=== PATIENT | male | born 2000 | race Caucasian/White ===

== ENCOUNTER 2022-06-16 22:11 | Emergency (ER) | payer OTHER ==
[2022-06-16 22:50] VITALS: BP 147/81; PULSE 58; RESP 20; TEMP 97.7
[2022-06-16] MEDS ORDERED: ACETAMINOPHEN TAB 500 MG TAB PO STA (23:08)
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
[2022-06-17 00:25] LABS: Basophils # (A) 0.1 k/uL (0-0.2); Basophils % (A) 1 %; Eosinophils # (A) 0.3 k/uL (0-0.7); Eosinophils % (A) 2 %; HCT 44.8 % (39.0-53.0); HGB 15.8 gm/dL (13.0-17.5); Lymphocytes # (A) 3.9 k/uL (1.0-4.8); Lymphocytes % (A) 33 %; MCHC 35.2 g/dL (31.0-37.0); MCV 90.9 fL (80.0-100.0); Mean Platelet Volume 8.1; Monocytes # (A) 0.4 k/uL (0-1.0); Monocytes % (A) 3 %; Neutrophils # (A) 6.8 k/uL (1.3-7.7); Neutrophils % (A) 59 %; Platelet Count 218 k/uL (150-450); RBC 4.93 m/uL (4.30-5.90); RDW 12.4 % (11.5-15.5); WBC 11.6 k/uL (3.8-10.6)
[2022-06-17 00:39] LABS: African American GFR (CKD) >90 (>60 ml/min/1.73 sqM); Alcohol <10 mg/dL; Anion Gap 9 mmol/L; Blood Urea Nitrogen 12 mg/dL (9-20); Calcium 9.5 mg/dL (8.4-10.2); Carbon Dioxide 26 mmol/L (22-30); Chloride 104 mmol/L (98-107); Glucose 92 mg/dL (74-99); Non-African American GFR(CKD) >90 (>60 ml/min/1.73 sqM); Potassium 4.1 mmol/L (3.5-5.1); Sodium 139 mmol/L (137-145)
== END 2022-06-17 05:01 | disposition home or self-care (01) ==
LOC: EC 22:11
DX: Z71.1 Person with feared health complaint in whom no diagnosis is made (principal); F41.9 Anxiety disorder, unspecified; F17.210 Nicotine dependence, cigarettes, uncomplicated
CPT/HCPCS: 80048; 80320; 85025; 99285

== ENCOUNTER 2022-08-24 13:06 | Emergency (ER) | payer OTHER ==
[2022-08-24 13:17] VITALS: BP 148/83; PULSE 77; RESP 20; TEMP 98.2
--- NOTE | 2022-08-24 13:38 | ED ---
General Adult HPI - General Source: patient, police, RN notes reviewed, old records reviewed Mode of arrival: ambulatory Limitations: physical limitation (Patient refuses to be compliant with history and physical.) <Gustavo Hernandez - Last Filed: 08/24/22 13:34> <Avery Celaya - Last Filed: 08/24/22 18:03> - General Chief complaint: Psychiatric Symptoms Stated complaint: mental health Time Seen by Provider: 08/24/22 13:20 - History of Present Illness Initial comments: 21-year-old male presenting for mental health evaluation. Patient has been petitioned by the group social worker or nurse at the local correction. Patient not compliant with history but the petitioned does indicate that he's been delusional, hypersexual, and has had increasing agitation with suicidal thoughts. (Gustavo Hernandez) - Related Data Home Medications Medication Instructions Recorded Confirmed No Known Home Medications 06/24/22 08/24/22 Allergies Allergy/AdvReac Type Severity Reaction Status Date / Time No Known Allergies Allergy Verified 08/24/22 15:51 Review of Systems ROS Other: All systems not noted in ROS Statement are negative. <Gustavo Hernandez - Last Filed: 08/24/22 13:34> ROS Other: All systems not noted in ROS Statement are negative. <Avery Celaya - Last Filed: 08/24/22 18:03> ROS Statement: Those systems with pertinent positive or pertinent negative responses have been documented in the HPI. Past Medical History Past Medical History: No Reported History Past Surgical History: No Surgical Hx Reported Past Psychological History: Bipolar Smoking Status: Heavy tobacco smoker Past Alcohol Use History: Occasional Past Drug Use History: None Reported <Gustavo Hernandez - Last Filed: 08/24/22 13:34> General Exam General appearance: alert Head exam: Present: atraumatic, normocephalic Eye exam: Present: normal appearance, PERRL ENT exam: Present: mucous membranes moist Neck exam: Present: normal inspection Respiratory exam: Absent: respiratory distress Cardiovascular Exam: Present: regular rate GI/Abdominal exam: Absent: distended Extremities exam: Present: normal inspection Neurological exam: Present: alert Psychiatric exam: Present: agitated, flat affect Skin exam: Present: normal color <Gustavo Hernandez - Last Filed: 08/24/22 13:34> Course <Gustavo Hernandez - Last Filed: 08/24/22 13:34> Vital Signs 08/24/22 13:09 Temperature 98.2 F Pulse Rate 77 Respiratory 20 Rate Blood Pressure 148/83 O2 Sat by Pulse 97 Oximetry - Reevaluation(s) Reevaluation #1: 08/24/22 13:35 Patient cleared for EPS (Gustavo Hernandez) Medical Decision Making <Avery Celaya - Last Filed: 08/24/22 18:03> - Medical Decision Making Patient is signed out to me pending EPS evaluation. Was petitioned by correction for psychiatric evaluation. Patient was evaluated by EPS. Does not meet inpatient criteria. Is cleared from EPS standpoint for discharge back to correction. I was in agreement with this plan. Patient was discharged back to correction in good condition. (Avery Celaya) - Lab Data Lab Results 08/24/22 08/24/22 Range/Units 13:57 16:14 Serum Alcohol <10 mg/dL Coronavirus (PCR) Not Detected (Not Detectd) Disposition <Gustavo Hernandez - Last Filed: 08/24/22 13:34> Is patient prescribed a controlled substance at d/c from ED?: No Time of Disposition: 17:45 - Out of Hospital Transfer - Req. Specs Out of Hospital Transfer - Requested Specifics: Other Non-Acute (Transfer back to correction. Patient is a prisoner.) <Avery Celaya - Last Filed: 08/24/22 18:03> Clinical Impression: Encounter for psychiatric assessment Disposition: OTHER INSTITUTION NOT DEFINED Condition: Good Additional Instructions: see packet from eps for further information. Referrals: None,Stated [Primary Care Provider] - 1-2 days
[2022-08-24] MEDS ORDERED: LORazepam 2 MG/ML INJ IM STA (15:24)
== END 2022-08-24 18:02 | disposition other institution (70) ==
LOC: EC 13:06
DX: Z00.8 Encounter for other general examination (principal); F31.9 Bipolar disorder, unspecified; F17.210 Nicotine dependence, cigarettes, uncomplicated; Z20.822 Contact with and (suspected) exposure to COVID-19
CPT/HCPCS: 36415; 87635; 99285; 96372; G0480; J2060; 80320

== ENCOUNTER 2022-08-25 12:28 | Inpatient (IN) | payer MEDICAID, OTHER ==
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
[2022-08-25] MEDS ORDERED: chlorproMAZINE 25 MG TAB PO PRN (15:04)
[2022-08-25] MEDS ORDERED: ACETAMINOPHEN TAB 325 MG TAB PO PRN (15:04)
[2022-08-25] MEDS ORDERED: MAGNESIUM HYDROXIDE 2,400 MG/10 ML CUP PO PRN (15:04)
[2022-08-25] MEDS ORDERED: MAG HYDROX/AL HYDROX/SIMETH 30 ML CUP PO PRN (15:04)
[2022-08-25] MEDS ORDERED: diphenhydrAMINE 50 MG/ML 1 ML VIAL IM PRN (15:04)
[2022-08-25] MEDS ORDERED: chlorproMAZINE 25 MG/ML 1 ML AMP IM PRN ×2 (15:04→18:38)
[2022-08-25] MEDS: NICOTINE 14MG/24HR PATCH TRANSDERM SCH (16:13)
[2022-08-25] MEDS ORDERED: chlorproMAZINE 25 MG/ML 2 ML AMP IM PRN (18:19)
[2022-08-25] MEDS: LORazepam 1 MG/0.5 ML VIAL IM PRN (18:31)
--- NOTE | 2022-08-26 04:09 | P.PN ---
Progress Note - Text Progress Note Date: 08/26/22 Attempted to see the patient at 2200 on 08/25. The patient was actively psychotic and inappropriate for evaluation as per the mental health unit RN.
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
[2022-08-26] MEDS: NICOTINE 14MG/24HR PATCH TRANSDERM SCH (11:36)
--- NOTE | 2022-08-26 21:09 | P.PN ---
Progress Note - Text Progress Note Date: 08/26/22 Attempted to see the patient at 1999 on 08/26. The patient refused to be seen or be evaluated.
[2022-08-27] MEDS ORDERED: ACETAMINOPHEN TAB 325 MG TAB ONE (00:20)
[2022-08-27] MEDS ORDERED: chlorproMAZINE 25 MG/ML 1 ML AMP ONE (00:20)
[2022-08-27] MEDS ORDERED: LORazepam 1 MG/0.5 ML VIAL ONE (00:20)
[2022-08-27] MEDS ORDERED: diphenhydrAMINE 50 MG/ML 1 ML VIAL ONE (00:20)
[2022-08-27] MEDS ORDERED: HALOPERIDOL LACTATE 5 MG/ML 1 ML VIAL IM STA (10:17)
[2022-08-27] MEDS: NICOTINE 14MG/24HR PATCH TRANSDERM SCH (10:18)
[2022-08-27] MEDS: LORazepam 1 MG/0.5 ML VIAL IM PRN (10:25)
[2022-08-27] MEDS: LORazepam 1 MG TAB PO PRN (21:06)
[2022-08-27] MEDS: chlorproMAZINE 100 MG TAB PO PRN (21:06)
[2022-08-28] MEDS: NICOTINE 14MG/24HR PATCH TRANSDERM SCH (08:53)
[2022-08-28] MEDS: chlorproMAZINE 100 MG TAB PO PRN ×2 (09:00→20:54)
--- NOTE | 2022-08-28 09:47 | PN ---
DATE OF SERVICE: 08/27/2022 PROGRESS NOTE CHIEF COMPLAINT: The patient presented from [facility] as acutely psychotic with nonsensical speech. INTERVAL HISTORY: The patient has been in a very acute level of dysfunction. He had difficulties yesterday. He did require restraints coming to the unit. He made efforts to elope from the unit. He had periods of agitation, where he would become quite restless, he was yelling. He required one-on-one. He did receive p.r.n. Staff documented that he slept 4 hours last night and today, he has been up. Mostly, he has been in his room. He does come out from [id number] and wanders in the unit. It is not clear that he interacts at all with others. When I attempted to talk to him, he did not give any eye contact or make any direct comments to me. He did say 1 or 2 things, all was hard to understand what he was trying to say. He did indicate that he did not need to talk to me at the time that I saw him, though it is noted that just before that he walked into the office, where I was at and stood for a brief time and then walked out again. MENTAL STATUS EXAMINATION: The patient gave no eye contact. Psychomotor activity was slowed. He only said a few things in very soft words. His affect was flat. It is difficult to assess for his mood or level of distress. He presents with psychotic symptoms. It is difficult to assess for thoughts of harm. It is difficult to assess for orientation. ASSESSMENT: I will continue the current diagnosis and treatment plan. The patient has declined taking oral medications that have been prescribed given the high risk that the patient presents relating to his serious behavior difficulties and inability to communicate. I will give him a one-time dose of Haldol 10 mg and Ativan 2 mg IM. The aim is to help reduce physiologic stress response and to address his psychotic presentation. He will continue on one-to-one. We will focus on stabilization and discharge planning. CRIS / JAIMIE: [id number] / [id number]
--- NOTE | 2022-08-28 13:02 | P.PN ---
Progress Note - Text Progress Note Date: 08/28/22 Interval history: Patient was seen bedside with sitter present and was directable and agreeable to speak with pattern chart writer. Agent is disorganized in his speech. He sexually preoccupied and requests this pattern chart writer to sit with him on the bed. He states that it would help him sleep better. He reports eating well. He denies concerns with medications and has been more compliant with them. He was encouraged to discuss concerns rather than attempt to elope. At this time patient denies any suicidal or homicidal ideations intent or plan. Denies any Auditory or visual hallucinations. Mental status exam: General Appearance: Poor hygiene disheveled. Behavior: Agitated today that is somewhat hyperactive Speech: Patient's speech is fluent and nonpressured. Mood/Affect: "Okay "but appears somnolent Suicidality/Homicidality: Patient denies having any suicidal or homicidal idea tion intent or plan. Perceptions: Patient denies any auditory or visual hallucinations. Though content/process: disorganized Memory and concentration: AOX3 Judgment and insight: poor Assessment/Plan: Continue with current diagnosis. Patient continues to meet criteria for inpatient psychiatric admission for symptom stabilization and safety.Patient will be maintained on current psychotropic medication regimen - Prolixin 5 mg BID with Ativan/Thorazine for aggression/agitation). Monitor for medication compliance and for any psychotropic medication side effects. Will continue to monitor ongoing response to treatment. Encouraged participation in milieu.
[2022-08-29 07:13] VITALS: BP 145/77; PULSE 122; RESP 16; TEMP 97.4
[2022-08-29] MEDS: NICOTINE 14MG/24HR PATCH TRANSDERM SCH (09:04)
[2022-08-29] MEDS: LORazepam 1 MG TAB PO PRN ×2 (09:41→19:40)
[2022-08-29] MEDS: diphenhydrAMINE 50 MG CAP PO PRN (09:41)
[2022-08-29] MEDS: chlorproMAZINE 100 MG TAB PO PRN (09:41)
--- NOTE | 2022-08-29 17:22 | P.PN ---
Progress Note - Text Progress Note Date: 08/29/22 Interval history: Patient was seen bedside with sitter present and was sedated. He was noted to be more disorganized this morning. As patient was getting agitated, he accepted Thorazine PO and Benadryl earlier today. He also received Ativan PO 2 mg this morning. He continues to be sexually preoccupied and repeatedly sought out this provider. He is noted to be eating well. He has been compliant with medications. No suicidal or homicidal ideations intent or plan. Denies any Auditory or visual hallucinations. Mental status exam: General Appearance: Poor hygiene disheveled. Behavior: Agitated today that is somewhat hyperactive Speech: Patient's speech is fluent and nonpressured. Mood/Affect: somnolent Suicidality/Homicidality: Patient denies having any suicidal or homicidal ideation intent or plan. Perceptions: Patient denies any auditory or visual hallucinations. Though content/process: disorganized Memory and concentration: AOX3 Judgment and insight: poor Assessment/Plan: Continue with current diagnosis. Patient continues to meet criteria for inpatient psychiatric admission for symptom stabilization and safety.Patient will be maintained on current psychotropic medication regimen - Prolixin 5 mg BID with Ativan/Thorazine for aggression/agitation). Monitor for medication compliance and for any psychotropic medication side effects. Will continue to monitor ongoing response to treatment. Encouraged participation in milieu.
[2022-08-30] MEDS: chlorproMAZINE 100 MG TAB PO PRN ×2 (00:04→08:02)
[2022-08-30] MEDS: diphenhydrAMINE 50 MG CAP PO PRN ×2 (00:05→10:31)
[2022-08-30] MEDS: LORazepam 1 MG TAB PO PRN (08:02)
[2022-08-30] MEDS: NICOTINE 14MG/24HR PATCH TRANSDERM SCH (08:02)
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
== END 2022-08-30 15:00 | DRG 885 ==
LOC: EC 12:28 → 3MHU 14:59
PROVIDERS: ADMIT Psychiatry & Neurology Psychiatry; ATTEND Psychiatry & Neurology Psychiatry
DX: F23 Brief psychotic disorder (principal); F17.200 Nicotine dependence, unspecified, uncomplicated; Z59.00 Homelessness unspecified; Z20.822 Contact with and (suspected) exposure to COVID-19
CPT/HCPCS: 82075; 87635; 99285

== ENCOUNTER 2022-08-26 13:26 | Emergency (ER) | payer OTHER ==
[2022-08-26 13:33] VITALS: TEMP 97.6
[2022-08-26] MEDS ORDERED: ZIPRASIDONE 20 MG VIAL IM STA (13:40)
[2022-08-26] MEDS ORDERED: LORazepam 2 MG/ML INJ IM STA (13:40)
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
[2022-08-26] MEDS ORDERED: diphenhydrAMINE 50 MG/ML 1 ML VIAL IM STA (14:17)
[2022-08-26 17:34] VITALS: BP 116/81; PULSE 84; RESP 18
== END 2022-08-26 16:55 ==
LOC: EC 13:26
DX: F23 Brief psychotic disorder (principal); F17.200 Nicotine dependence, unspecified, uncomplicated
CPT/HCPCS: 99285; 96372; J2060; J1200; J3486

== ENCOUNTER 2022-10-04 09:24 | Emergency (ER) | payer OTHER ==
[2022-10-04 09:43] VITALS: TEMP 97.6
--- NOTE | 2022-10-04 10:40 | ED ---
Psych HPI - General Chief Complaint: Psychiatric Symptoms Stated Complaint: suicidal Time Seen by Provider: 10/04/22 09:40 Source: patient, RN notes reviewed Mode of arrival: ambulatory Limitations: no limitations - History of Present Illness Initial Comments: 21-year-old male presents emergency from chief complaint needs psychiatric evaluation. Patient not providing much information does admit to alcohol or drugs otherwise not participating in questions. Patient does have history of psychosis, recent site admission. - Related Data Previous Rx's Medication Instructions Recorded Nicotine 14Mg/24Hr Patch [Habitrol] 1 patch TRANSDERM DAILY 30 Days 08/30/22 patch fluPHENAZine [Prolixin] 5 mg PO BID 30 Days tab 08/30/22 Allergies Allergy/AdvReac Type Severity Reaction Status Date / Time No Known Allergies Allergy Verified 10/04/22 12:53 Review of Systems ROS Statement: Those systems with pertinent positive or pertinent negative responses have been documented in the HPI. ROS Other: All systems not noted in ROS Statement are negative. Past Medical History Past Medical History: No Reported History History of Any Multi-Drug Resistant Organisms: None Reported Past Surgical History: No Surgical Hx Reported Past Psychological History: Bipolar Smoking Status: Heavy tobacco smoker Past Alcohol Use History: Occasional Past Drug Use History: None Reported General Exam Limitations: no limitations General appearance: alert, in no apparent distress Head exam: Present: atraumatic, normocephalic, normal inspection Eye exam: Present: normal appearance, PERRL, EOMI. Absent: scleral icterus, conjunctival injection, periorbital swelling ENT exam: Present: normal exam, normal oropharynx, mucous membranes moist Neck exam: Present: normal inspection, full ROM. Absent: tenderness, meningismus, lymphadenopathy Respiratory exam: Present: normal lung sounds bilaterally. Absent: respiratory distress, wheezes, rales, rhonchi, stridor Cardiovascular Exam: Present: regular rate, normal rhythm, normal heart sounds. Absent: systolic murmur, diastolic murmur, rubs, gallop, clicks Neurological exam: Present: alert Skin exam: Present: warm, dry, intact, normal color. Absent: rash Course Vital Signs 10/04/22 10/05/22 09:40 02:57 Temperature 97.6 F Pulse Rate 75 78 Respiratory 20 18 Rate Blood Pressure 148/95 146/98 O2 Sat by Pulse 100 98 Oximetry Medical Decision Making - Medical Decision Making 12-year-old presented for psychiatric evaluation patient evaluate by EPS case discussed with psychiatrist recommends patient be transferred to psychiatric facility. Patient was evaluated by Dr. Rodriguez and clinical CERT patient was filled out. Patient was a evaluated by psychiatrist and patient was negatively cert by psychiatry and recommended the patient to be discharged on the recommendation. - Lab Data Result diagrams: 10/05/22 04:53 10/05/22 04:53 Lab Results 10/04/22 10/04/22 10/05/22 Range/Units 12:53 13:38 04:53 WBC (3.8-10.6) k/uL RBC (4.30-5.90) m/uL Hgb (13.0-17.5) gm/dL Hct (39.0-53.0) % MCV (80.0-100.0) fL MCH (25.0-35.0) pg MCHC (31.0-37.0) g/dL RDW (11.5-15.5) % Plt Count (150-450) k/uL MPV Neutrophils % % Lymphocytes % % Monocytes % % Eosinophils % % Basophils % % Neutrophils # (1.3-7.7) k/uL Lymphocytes # (1.0-4.8) k/uL Monocytes # (0-1.0) k/uL Eosinophils # (0-0.7) k/uL Basophils # (0-0.2) k/uL Sodium 142 (137-145) mmol/L Potassium 4.0 (3.5-5.1) mmol/L Chloride 111 H (98-107) mmol/L Carbon Dioxide 26 (22-30) mmol/L Anion Gap 5 mmol/L BUN 16 (9-20) mg/dL Creatinine 0.78 (0.66-1.25) mg/dL Est GFR (CKD-EPI)AfAm >90 (>60 ml/min/1.73 sqM) Est GFR (CKD-EPI)NonAf >90 (>60 ml/min/1.73 sqM) Glucose 113 H (74-99) mg/dL Calcium 8.6 (8.4-10.2) mg/dL Total Bilirubin 0.9 (0.2-1.3) mg/dL AST 28 (17-59) U/L ALT 28 (4-49) U/L Alkaline Phosphatase 62 (38-126) U/L Total Protein 6.1 L (6.3-8.2) g/dL Albumin 3.9 (3.5-5.0) g/dL Urine Color Yellow Urine Appearance Clear (Clear) Urine pH 7.0 (5.0-8.0) Ur Specific [place] 1.030 (1.001-1.035) Urine Protein Trace H (Negative) Urine Glucose (UA) Negative (Negative) Urine Ketones Negative (Negative) Urine Blood Negative (Negative) Urine Nitrite Negative (Negative) Urine Bilirubin Negative (Negative) Urine Urobilinogen 2.0 (<2.0) mg/dL Ur Leukocyte Esterase Negative (Negative) Urine Opiates Screen Not Detected (NotDetected) Ur Oxycodone Screen Not Detected (NotDetected) Urine Methadone Screen Not Detected (NotDetected) Ur Propoxyphene Screen Not Detected (NotDetected) Ur Barbiturates Screen Not Detected (NotDetected) U Tricyclic Antidepress Not Detected (NotDetected) Ur Phencyclidine Scrn Not Detected (NotDetected) Ur Amphetamines Screen Not Detected (NotDetected) U Methamphetamines Scrn Not Detected (NotDetected) U Benzodiazepines Scrn Not Detected (NotDetected) Urine Cocaine Screen Not Detected (NotDetected) U Marijuana (THC) Screen Detected H (NotDetected) Coronavirus (PCR) (Not Detectd) 10/05/22 10/05/22 Range/Units 04:53 04:53 WBC 10.0 (3.8-10.6) k/uL RBC 4.66 (4.30-5.90) m/uL Hgb 14.3 (13.0-17.5) gm/dL Hct 40.4 (39.0-53.0) % MCV 86.7 (80.0-100.0) fL MCH 30.7 (25.0-35.0) pg MCHC 35.4 (31.0-37.0) g/dL RDW 11.8 (11.5-15.5) % Plt Count 157 (150-450) k/uL MPV 7.9 Neutrophils % 75 % Lymphocytes % 18 % Monocytes % 3 % Eosinophils % 2 % Basophils % 0 % Neutrophils # 7.5 (1.3-7.7) k/uL Lymphocytes # 1.8 (1.0-4.8) k/uL Monocytes # 0.3 (0-1.0) k/uL Eosinophils # 0.2 (0-0.7) k/uL Basophils # 0.0 (0-0.2) k/uL Sodium (137-145) mmol/L Potassium (3.5-5.1) mmol/L Chloride (98-107) mmol/L Carbon Dioxide (22-30) mmol/L Anion Gap mmol/L BUN (9-20) mg/dL Creatinine (0.66-1.25) mg/dL Est GFR (CKD-EPI)AfAm (>60 ml/min/1.73 sqM) Est GFR (CKD-EPI)NonAf (>60 ml/min/1.73 sqM) Glucose (74-99) mg/dL Calcium (8.4-10.2) mg/dL Total Bilirubin (0.2-1.3) mg/dL AST (17-59) U/L ALT (4-49) U/L Alkaline Phosphatase (38-126) U/L Total Protein (6.3-8.2) g/dL Albumin (3.5-5.0) g/dL Urine Color Urine Appearance (Clear) Urine pH (5.0-8.0) Ur Specific [place] (1.001-1.035) Urine Protein (Negative) Urine Glucose (UA) (Negative) Urine Ketones (Negative) Urine Blood (Negative) Urine Nitrite (Negative) Urine Bilirubin (Negative) Urine Urobilinogen (<2.0) mg/dL Ur Leukocyte Esterase (Negative) Urine Opiates Screen (NotDetected) Ur Oxycodone Screen (NotDetected) Urine Methadone Screen (NotDetected) Ur Propoxyphene Screen (NotDetected) Ur Barbiturates Screen (NotDetected) U Tricyclic Antidepress (NotDetected) Ur Phencyclidine Scrn (NotDetected) Ur Amphetamines Screen (NotDetected) U Methamphetamines Scrn (NotDetected) U Benzodiazepines Scrn (NotDetected) Urine Cocaine Screen (NotDetected) U Marijuana (THC) Screen (NotDetected) Coronavirus (PCR) Not Detected (Not Detectd) Disposition Clinical Impression: Psychosis Disposition: HOME SELF-CARE Condition: Stable Additional Instructions: Please return to the Emergency Department if symptoms worsen or any other concerns. Is patient prescribed a controlled substance at d/c from ED?: No Referrals: None,Stated [Primary Care Provider] - 1-2 days Time of Disposition: 13:01
[2022-10-04] MEDS ORDERED: ZIPRASIDONE 20 MG VIAL IM STA (12:54)
[2022-10-04] MEDS ORDERED: LORazepam 2 MG/ML INJ IM STA (12:54)
[2022-10-04 13:29] LABS: Appearance,Urine Clear (Clear); Bilirubin,Urine Negative (Negative); Blood,Urine Negative (Negative); Color,Urine Yellow; Glucose,Urine (UA) Negative (Negative); Ketones,Urine Negative (Negative); Leukocyte Esterase,Urine Negative (Negative); Nitrite,Urine Negative (Negative); Protein,Urine Trace (Negative)
[2022-10-04 13:40] LABS: Amphetamine Screen,Urine Not Detected (NotDetected); Barbiturate Screen,Urine Not Detected (NotDetected); Benzodiazepines Screen,Urine Not Detected (NotDetected); Cocaine Screen,Urine Not Detected (NotDetected); Methadone Screen, Urine Not Detected (NotDetected); Opiate Screen,Urine Not Detected (NotDetected); Oxycodone Screen, Urine Not Detected (NotDetected); Phencyclidine Screen,Urine Not Detected (NotDetected); Tricyclic Antidepressant,Urine Not Detected (NotDetected); Urn Cannabinoid Scrn Detected (NotDetected)
[2022-10-05] MEDS ORDERED: ZIPRASIDONE 20 MG VIAL IM STA (02:42)
[2022-10-05] MEDS ORDERED: LORazepam 2 MG/ML INJ IM STA (02:42)
[2022-10-05 02:58] VITALS: BP 146/98; PULSE 78; RESP 18
[2022-10-05 05:04] LABS: Basophils % (A) 0 %; Eosinophils # (A) 0.2 k/uL (0-0.7); Eosinophils % (A) 2 %; HCT 40.4 % (39.0-53.0); HGB 14.3 gm/dL (13.0-17.5); Lymphocytes # (A) 1.8 k/uL (1.0-4.8); Lymphocytes % (A) 18 %; MCH 30.7 pg (25.0-35.0); MCHC 35.4 g/dL (31.0-37.0); MCV 86.7 fL (80.0-100.0); Mean Platelet Volume 7.9; Monocytes # (A) 0.3 k/uL (0-1.0); Monocytes % (A) 3 %; Neutrophils # (A) 7.5 k/uL (1.3-7.7); Neutrophils % (A) 75 %; Platelet Count 157 k/uL (150-450); RBC 4.66 m/uL (4.30-5.90); RDW 11.8 % (11.5-15.5)
[2022-10-05 05:18] LABS: ALT 28 U/L (4-49); AST 28 U/L (17-59); African American GFR (CKD) >90 (>60 ml/min/1.73 sqM); Albumin 3.9 g/dL (3.5-5.0); Alkaline Phosphatase 62 U/L (38-126); Anion Gap 5 mmol/L; Blood Urea Nitrogen 16 mg/dL (9-20); Calcium 8.6 mg/dL (8.4-10.2); Carbon Dioxide 26 mmol/L (22-30); Chloride 111 mmol/L (98-107); Glucose 113 mg/dL (74-99); Non-African American GFR(CKD) >90 (>60 ml/min/1.73 sqM); Sodium 142 mmol/L (137-145); Total Bilirubin 0.9 mg/dL (0.2-1.3); Total Protein 6.1 g/dL (6.3-8.2)
--- NOTE | 2022-10-05 11:30 | P.CN ---
Psychiatric Consult - . Consult date: 10/05/22 Consult:: IDENTIFYING DATA: This patient is a 21-year-old male with a significant history of psychosis who presented to the emergency department for psychiatric evaluation. HISTORY OF PRESENT ILLNESS: The patient presented to the hospital on 10/04/2022, brought into the emergency department on his own volition requesting a psychiatric evaluation. As per emergency department note review, the patient did admit to alcohol and drug use however refused to answer any questions. The patient has been noted by staff to be intermittently bizarre. At times, he'll be nonsensical when directly observed however when observed without the patient's knowledge, the patient was calm, linear, and logical. When assessed by this provider, the patient reports that he is uncertain as to how he arrived to the hospital. . He is currently denying any suicidal or homicidal ideation, intention, and/or plan. The only homicidal ideation he endorses is towards Stateless soldiers as he wishes to fight for [place]. He is not reporting any aud itory or visual hallucinations. The patient is not endorsing any bizarre paranoid delusions. He is linear and logical and future/school oriented and is requesting controlled medications such as Percocet and Adderall. The patient does acknowledge that he has been staying at the [facility]. He does report that he is unhappy being there but understands that he has no other alternatives as he would be homeless otherwise. PAST PSYCHIATRIC HISTORY: Patient has a history of psychosis. The patient is on a regimen of Prolixin 5 mg by mouth twice a day. His last hospitalized on our psychiatric unit in August 2022. Currently open with [facility]. Patient denies any history of suicide attempts in the past. PAST MEDICAL HISTORY: Past Medical History: No Reported History History of Any Multi-Drug Resistant Organisms: None Reported Past Surgical History: No Surgical Hx Reported Past Psychological History: Bipolar Smoking Status: Heavy tobacco smoker Past Alcohol Use History: Occasional Past Drug Use History: None Reported ALLERGIES: NO KNOWN DRUG ALLERGIES CHEMICAL DEPENDENCY HISTORY: The patient does report alcohol use. He also admits to marijuana use. He reports a history of other polysubstance abuse. FAMILY PSYCHIATRIC/SUBSTANCE USE HISTORY: Unable to determine. SOCIAL HISTORY: Patient currently resides at the [facility]. MENTAL STATUS EXAM: General Appearance: Patient appears to be stated age is alert, pleasant, and cooperative. Patient appears to have fair hygiene and grooming wearing hospital gown with fair eye contact. Behavior: Patient is standing upright in his room without any agitated behavior. Speech: Patient's speech is fluent and nonpressured. Mood/Affect: Patient reports their mood is "doing fine", affect is congruent and euthymic Suicidality/Homicidality: Patient denies having any suicidal or homicidal ideation intent or plan. Perceptions: Patient denies any visual hallucinations and denies any auditory hallucinations Though content/process: There is no evidence of any delusional thought content and thought process is linear and goal-directed. Memory and concentration: AOX3, grossly intact for the purposes of this session. Can spell "WORLD" backwards Judgment and insight: Poor IMPRESSIONS: Acute psychosis, appears resolved Rule out malingering - patient likely looking for secondary gain in terms of finding different housing or avoiding his wildlife officer. PLAN: -At this time patient DOES NOT meet criteria for inpatient psychiatric admission. -Would recommend the following medication changes/additions: Continue Prolixin 5 mg by mouth twice a day for psychosis -Patient is cleared psychiatrically for discharge back to the [facility]. He is to continue outpatient treatment through [facility]. -Psychiatry will sign off at this point, please contact with any questions. 10/05/22 11:30 10/05/22 11:30
== END 2022-10-05 11:24 | disposition home or self-care (01) ==
LOC: EC 09:24
DX: F29 Unspecified psychosis not due to a substance or known physiological condition (principal); F17.200 Nicotine dependence, unspecified, uncomplicated; Z20.822 Contact with and (suspected) exposure to COVID-19
CPT/HCPCS: 96372 ×4; 82075; 99284; 36415; 80053; 85025; 81003; 80306; 87635; 99285; J2060 ×2; J3486 ×2

== ENCOUNTER 2022-10-05 15:06 | Emergency (ER) | payer OTHER ==
[2022-10-05 15:33] VITALS: BP 125/83; PULSE 103; RESP 22; TEMP 97.8
--- NOTE | 2022-10-05 15:59 | ED ---
General Adult HPI - General Chief complaint: Psychiatric Symptoms Stated complaint: Petition Time Seen by Provider: 10/05/22 15:36 Source: patient, police Mode of arrival: ambulatory Limitations: altered mental status - History of Present Illness Initial comments: This patient is 21-year-old man brought by law enforcement to have medical clearance to go to the assisted. When I interview the patient, he states his complaint is "I need a microwave because these application developer confiscated maribel. I also need an outlet." Patient denies suicidal and homicidal ideation. When asked if there was anything else the patient needed he stated he also needed part of $1 million. -: hour(s) Severity scale (1-10): 0 Improves with: none Worsens with: none Associated Symptoms: denies other symptoms Treatments Prior to Arrival: none - Related Data Previous Rx's Medication Instructions Recorded Nicotine 14Mg/24Hr Patch [Habitrol] 1 patch TRANSDERM DAILY 30 Days 08/30/22 patch fluPHENAZine [Prolixin] 5 mg PO BID 30 Days tab 08/30/22 Allergies Allergy/AdvReac Type Severity Reaction Status Date / Time No Known Allergies Allergy Verified 10/05/22 15:33 Review of Systems ROS Statement: Those systems with pertinent positive or pertinent negative responses have been documented in the HPI. ROS Other: All systems not noted in ROS Statement are negative. Constitutional: Denies: fever Respiratory: Denies: cough, dyspnea Cardiovascular: Denies: chest pain, syncope Gastrointestinal: Denies: abdominal pain, vomiting Musculoskeletal: Denies: back pain Neurological: Denies: headache Psychiatric: Denies: homicidal thoughts, suicidal thoughts Past Medical History Past Medical History: No Reported History History of Any Multi-Drug Resistant Organisms: None Reported Past Surgical History: No Surgical Hx Reported Past Psychological History: Bipolar Smoking Status: Heavy tobacco smoker Past Alcohol Use History: Occasional Past Drug Use History: None Reported General Exam Limitations: altered mental status General appearance: alert, in no apparent distress Head exam: Present: atraumatic, normocephalic Eye exam: Present: normal appearance Neck exam: Present: normal inspection, full ROM Respiratory exam: Present: normal lung sounds bilaterally. Absent: respiratory distress, wheezes, rales, rhonchi, stridor Cardiovascular Exam: Present: regular rate, normal rhythm, normal heart sounds. Absent: systolic murmur, diastolic murmur, rubs, gallop GI/Abdominal exam: Present: soft. Absent: distended, tenderness, guarding, rebound, rigid, mass Extremities exam: Present: normal inspection, normal capillary refill Back exam: Present: normal inspection Neurological exam: Present: alert, normal gait. Absent: motor sensory deficit Psychiatric exam: Present: normal affect. Absent: agitated, anxious, flat affect, homicidal ideation, suicidal ideation Skin exam: Present: warm, dry, intact, normal color. Absent: rash Course Vital Signs 10/05/22 15:24 Temperature 97.8 F Pulse Rate 103 H Respiratory 22 Rate Blood Pressure 125/83 O2 Sat by Pulse 98 Oximetry Medical Decision Making - Medical Decision Making This patient is brought here by law enforcement prior to going to the assisted. General requested that the patient have medical clearance and psychiatric evaluation. Review of records shows that the patient was seen by the psychiatrist this morning and cleared. Disposition Clinical Impression: Medical clearance for incarceration Disposition: OTHER INSTITUTION NOT DEFINED Condition: Good Is patient prescribed a controlled substance at d/c from ED?: No Referrals: None,Stated [Primary Care Provider] - 1-2 days - Out of Hospital Transfer - Req. Specs Out of Hospital Transfer - Requested Specifics: Other Non-Acute
== END 2022-10-05 16:15 | disposition other institution (70) ==
LOC: EC 15:06
DX: R41.82 Altered mental status, unspecified; F17.200 Nicotine dependence, unspecified, uncomplicated; F31.9 Bipolar disorder, unspecified; Z02.89 Encounter for other administrative examinations
CPT/HCPCS: 99285

== ENCOUNTER 2022-10-06 10:31 | Inpatient (IN) | payer MEDICAID, OTHER ==
--- NOTE | 2022-10-06 10:43 | ED ---
General Adult HPI - General Stated complaint: Psych Time Seen by Provider: 10/06/22 10:35 Source: patient, police, RN notes reviewed Mode of arrival: ambulatory Limitations: no limitations - History of Present Illness Initial comments: 21-year-old male presents emergency Department with police from [facility] for psychiatric evaluation. Patient's had multiple recent visits for similar complaints. Patient is brought here secondary to his behavior. Patient himself has no complaints she does not participate much in the evaluation. Patient does have a history of marijuana use, acute psychosis. Patient denies any physical complaints. - Related Data Home Medications Medication Instructions Recorded Confirmed ARIPiprazole [Abilify] 15 mg PO HS 10/06/22 10/06/22 Allergies Allergy/AdvReac Type Severity Reaction Status Date / Time No Known Allergies Allergy Verified 10/06/22 11:06 Review of Systems ROS Statement: Those systems with pertinent positive or pertinent negative responses have been documented in the HPI. ROS Other: All systems not noted in ROS Statement are negative. Past Medical History Past Medical History: No Reported History History of Any Multi-Drug Resistant Organisms: None Reported Past Surgical History: No Surgical Hx Reported Past Psychological History: Bipolar Smoking Status: Heavy tobacco smoker Past Alcohol Use History: Occasional Past Drug Use History: None Reported General Exam Limitations: no limitations General appearance: alert, in no apparent distress Head exam: Present: atraumatic, normocephalic, normal inspection Eye exam: Present: normal appearance, PERRL, EOMI. Absent: scleral icterus, conjunctival injection, periorbital swelling ENT exam: Present: normal exam, normal oropharynx, mucous membranes moist Neck exam: Present: normal inspection, full ROM. Absent: tenderness, meningismus, lymphadenopathy Respiratory exam: Present: normal lung sounds bilaterally. Absent: respiratory distress, wheezes, rales, rhonchi, stridor Cardiovascular Exam: Present: regular rate, normal rhythm, normal heart sounds. Absent: systolic murmur, diastolic murmur, rubs, gallop, clicks Neurological exam: Present: alert, oriented X3, CN II-XII intact Psychiatric exam: Present: anxious Skin exam: Present: warm, dry, intact, normal color. Absent: rash Course Vital Signs 10/06/22 10:32 Temperature 98.1 F Pulse Rate 104 H Respiratory 18 Rate Blood Pressure 137/87 O2 Sat by Pulse 96 Oximetry Medical Decision Making - Medical Decision Making patient was evaluated by EPS patient will be admitted for psychiatric treatment. - Lab Data Lab Results 10/06/22 Range/Units 11:23 Coronavirus (PCR) Not Detected (Not Detectd) Disposition Clinical Impression: Acute psychosis Disposition: TRANSFER TO PSYCH HOSP/UNIT Time of Disposition: 13:34
[2022-10-06] MEDS ORDERED: MAGNESIUM HYDROXIDE 2,400 MG/10 ML CUP PO PRN (13:09)
[2022-10-06] MEDS ORDERED: MAG HYDROX/AL HYDROX/SIMETH 355 ML BOTTLE PO PRN (13:09)
[2022-10-06] MEDS ORDERED: chlorproMAZINE 25 MG/ML 2 ML AMP IM PRN ×4 (13:10→14:55)
[2022-10-06] MEDS ORDERED: LORazepam 1 MG/0.5 ML VIAL IM PRN (13:10)
[2022-10-06] MEDS: diphenhydrAMINE 50 MG/ML 1 ML VIAL IM PRN (14:31)
[2022-10-06] MEDS ORDERED: LORazepam 2 MG/ML INJ IM PRN (18:03)
[2022-10-06] MEDS ORDERED: ARIPiprazole 15 MG TAB PO SCH (21:00)
[2022-10-07] MEDS: NICOTINE 14MG/24HR PATCH TRANSDERM SCH (09:02)
--- NOTE | 2022-10-07 10:22 | P.HP ---
Psychiatric H&P - . H&P Date: 10/07/22 History & Physical: Allergies Allergy/AdvReac Type Severity Reaction Status Date / Time No Known Allergies Allergy Verified 10/06/22 11:06 Vital Signs Temp 98.1 F 10/06/22 16:07 Pulse 68 10/06/22 16:07 Resp 16 10/06/22 16:07 BP 139/80 10/06/22 16:07 Pulse Ox 96 10/06/22 10:32 FiO2 Intake & Output 10/06/22 10/07/22 10/07/22 18:59 06:59 18:59 Weight 74.843 kg Laboratory Last Values Coronavirus (PCR) Not Detected (Not Detectd) 10/06/22 11:10/07/22 10:21 IDENTIFYING DATA: Patient is a 21-year-old, homeless, male, who pre sented from custodial for acute psychotic and bizarre behaviors. HPI: Patient presented to the hospital initially on 10/04/2022 presenting for psychiatric evaluation. Initially when assessed on 10/05/2022 by this provider, the patient was noted to be intermittently bizarre, in particular when he knew that he was being directly observed. However when he was not aware of being observed, the patient appeared to be calm, linear, and logical. Therefore negative clinical certificate was filled out by this provider and he was subsequently discharged. During the initial assessment, the patient remained fixated on being prescribed Bentyl medications such as Percocet and Adderall. Shortly after discharge, the patient was picked up by police for disorderly conduct. He was brought to the hospital again on 10/05/2022 for clearance for custodial. The patient was is calmly transferred back to the emergency Department from custodial under petition for bizarre and psychotic behavior. Reportedly, the patient has been yelling nonstop for 18 hours and has been defecating, masturbating, and exposing himself to the staff at the custodial. He was subsequently admitted onto our psychiatric unit. The patient presented similarly to our psychiatric unit in August 2022. During that admission, the patient was placed on a regimen of Prolixin for management of acute psychosis. During that admission, the patient did not display any of the bizarre behaviors I was exhibited in custodial. During this admission, the patient again eloped from the unit. He was subsequently found and readmitted back onto our psychiatric unit and is currently on a one-to-one security. Upon assessment this morning, the patient continues to state bizarre statements towards this provider stating that he is a "free person." He also reports that he was knocking on people's doors in order to use the microwave because he was cold. He also states that he would like to fight for the people in [facility]. PAST PSYCHIATRIC HISTORY: Patient reportedly did well on Abilify while admitted in the custodial.he was last discharged from our hospital in August 2022 on a regimen of Prolixin 5 mg twice daily. He is currently open with [facility]. He is under deferral status. He reported no previous attempts at suicide. PMH: Past Medical History: No Reported History History of Any Multi-Drug Resistant Organisms: None Reported Past Surgical History: No Surgical Hx Reported Past Psychological History: Bipolar Smoking Status: Heavy tobacco smoker Past Alcohol Use History: Occasional Past Drug Use History: None Reported ALLERGIES: NO KNOWN DRUG ALLERGIES CHEMICAL DEPENDENCY HISTORY: The patient reports alcohol use. He also admits to daily marijuana use. There is a history of polysubstance abuse including methamphetamines however we are uncertain as to how often the patient uses. FAMILY PSYCHIATRIC/SUBSTANCE USE HISTORY: Unable to determine. SOCIAL HISTORY: Patient is currently in custodial for disorderly conduct. He was originally staying at the [facility]. He is otherwise homeless with no family or friend support.. MENTAL STATUS EXAM: General Appearance: Patient appears to be stated age is alert, directable, and attempts to cooperate. Patient appears to have poor hygiene and grooming. Behavior: Patient is constantly pacing. He appears to be attention seeking. Speech: Patient's speech is fluent and nonpressured. Nonsensical however linear when speaking on certain subjects. Mood/Affect: Patient reports their mood is "doing great," affect is bright. Suicidality/Homicidality: Patient denies having any homicidal ideation intent or plan. Denies any suicidal ideations intent or plan Perceptions: Patient denies any visual hallucinations and denies any auditory hallucinations Though content/process: When observed indirectly, the patient does not display any delusional thoughts or behaviors. Memory and concentration: Appears poor Judgment and insight: Poor STRENGTHS/WEAKNESSES: Strength is that the patient is resourceful. Weakness is that the patient has underlying personality issues and suspected sociopathy. INTELLECT: Unable to determine IMPRESSIONS: Acute psychosis Rule out cluster B personality traits Rule out malingering - suspect secondary gain to get out of custodial and to obtain housing; the patient has been noted by staff to appear calm and logical when observed without his knowledge. Cannabis use disorder PLAN: -Patient is admitted under involuntary under deferral status to MHU for stabilization of psychiatric symptoms and safety. A demand for court will be filed -Medications : Increase Abilify to 20 mg by mouth at bedtime for acute psychosis Start Depakote 500 mg by mouth twice a day for mood stabilization/impulsivity. -Ativan and Thorazine PRN for agitation/aggression -Patient was counseled on substance abuse however speak contemplative. -Patient was informed of the risks, benefits and side effects of the medication however is unable to acknowledge or refuses to acknowledge what is said to him. -Internal Medicine consult to perform medical evaluation and physical. -NRT - nicotine patch -SW on board for discharge planning. Encourage patient to participate in groups to work on coping skills. 10/07/22 10:21
[2022-10-07] MEDS: ACETAMINOPHEN TAB 325 MG TAB PO PRN ×2 (10:38→22:01)
[2022-10-07] MEDS: diphenhydrAMINE 50 MG/ML 1 ML VIAL IM PRN (10:49)
[2022-10-07] MEDS: DIVALPROEX 500 MG TABLET.DR PO SCH (20:29)
[2022-10-07] MEDS: hydrOXYzine pamoate 25 MG CAP PO PRN (20:55)
[2022-10-07] MEDS: chlorproMAZINE 25 MG TAB PO PRN (20:55)
[2022-10-07] MEDS ORDERED: OLANZapine 5 MG TAB PO PRN ×2 (23:20→23:23)
--- NOTE | 2022-10-08 01:36 | P.CONS ---
History of Present Illness - Reason for Consult Consult date: 10/07/22 - History of Present Illness The patient is a 21-year-old male with a PMH of bipolar disorder who was brought into the emergency room from nursing home for psychiatric evaluation. The patient was admitted to the mental health unit where he was seen and evaluated. The patient was actively psychotic at the time of interview and was not answering all questions appropriately. The patient exhibited grandiose thinking with flight of ideas throughout the interview. He reported that he has currently under probation due to assault and battery for having aggressive sex with his . He then went on to say that he found Maritza Brooks from [place] and brought her to the [place] and that he had traveled throughout the [place] in [place], despite the fact that he was born in the year 1999. He denied any physical complaints at the time of interview. Reported recreational marijuana and tobacco use. Review of systems: Pertinent positives and negatives as discussed in HPI, a complete review of systems was performed and all other systems are negative. Physical examination: General: non toxic, no distress, appears at stated age, normal weight Derm: no unusual rashes/lesions, no unusual ecchymoses, warm, dry Head: atraumatic, normocephalic, symmetric Eyes: EOMI, no lid lag, anicteric sclera ENT: Nose and ears atraumatic, no thrush, no pharyngeal erythema Neck: trachea midline, supple Mouth: no lip lesion, mucus membranes moist Cardiovascular: S1S2 reg, no murmur, no edema Lungs: CTA bilateral, no rhonchi, no rales , no accessory muscle use Abdominal: soft, nontender to palpation, no guarding Ext: no gross muscle atrophy, no contractures, Neuro: No gross focal neuro deficits noted Psych: Alert, flat affect with grandiosity and flight of ideas Assessment/plan Marijuana and tobacco abuse -Advised on the importance of cessation Psychosis -As per psychiatry Thank you for allowing us to participate in the care of this patient. We will follow peripherally. Do not hesitate to contact us with questions. Someone can be reached from the [facility] hospitalist group at all hours of the day at [phone]. Past Medical History Past Medical History: No Reported History History of Any Multi-Drug Resistant Organisms: None Reported Past Surgical History: No Surgical Hx Reported Past Psychological History: Bipolar Smoking Status: Current every day smoker Past Alcohol Use History: Occasional Past Drug Use History: None Reported - Past Family History Mother Family Medical History: Unable to Obtain (due to patient's psychosis) Medications and Allergies Home Medications Medication Instructions Recorded Confirmed Type ARIPiprazole [Abilify] 15 mg PO HS 10/06/22 10/06/22 History Allergies Allergy/AdvReac Type Severity Reaction Status Date / Time No Known Allergies Allergy Verified 10/06/22 11:06
[2022-10-08 06:07] VITALS: BP 126/69; PULSE 78; RESP 15; TEMP 97.5
[2022-10-08] MEDS: NICOTINE 14MG/24HR PATCH TRANSDERM SCH (09:08)
[2022-10-08] MEDS: DIVALPROEX 500 MG TABLET.DR PO SCH ×2 (09:08→20:14)
--- NOTE | 2022-10-08 09:32 | P.PN ---
Progress Note - Text Progress Note Date: 10/08/22 Interval History: Patient was seen wandering the hallways and was directable and agreeable to speak with technical report writer in his room accompanied by security. He denies any suicidal or homicidal ideation initially but then states he is suicidal after being upset at this provider. He also reports no auditory or visual hallucinations. 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 It is noticeable he says random statements about him being in [place] and in the only when confronted by this provider with reality that he is homeless, incarcerated, and has not social supports around him. He was counseled on maintaining appropriate behaviors if he wishes to participate in society. He becomes more upset at this provider when confronted regarding his inappropriate behaviors. He states he wants a different psychiatrist. The patient has been adherent with his medications however expresses he does not want anymore "booty darts." The patient was counseled at great length that his inappropriate and aggressive behaviors warrant the use of IM medications and if he is able to behave appropriately where he himself, staff, and peers are not at risk of harm we would not utilize IM medications. The patient was noted to be l oud and intrusive at 20:55 requiring PO thorazine and vistaril. At 10 am yesterday he was agitated and upset threatening staff and posturing for violence. He was given IM thorazine, ativan, and benadryl for agitation at that time. Mental Status Exam General Appearance: Patient appears to be stated age is alert, intermittently directable, and intermittently cooperative. Oppositional. Behavior: Patient is calmly seated without any agitated behavior. Speech: Patient's speech is fluent, loud in volume, hyperverbal. Would go on bizarre tangents when confronted with subjects he did not wish to speak of (his living situation, his lack of support, his incarceration). Mood/Affect: Mood is "pissed off." Affect is child-like, oppositional. Suicidality/Homicidality: Patient reports suicidal ideation. Denies homicidal ideation. Perceptions: Patient denies any visual hallucinations and denies any auditory hallucinations Though content/process: Bizarre delusions are endorsed however appear to be loosely held. He would endorse his delusion when confronted on a subject he did not like, when realizing a lack of reaction from this provider, he would stop reporting his delusion. He appears to be goal-directed. Memory and concentration: AAOx3. Concentration is grossly intact. 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 Rule out malingering - suspect secondary gain to get out of residential and to obtain housing; the patient has been noted by staff to appear calm and logical when observed without his knowledge. Cannabis use disorder Plan: -Patient is admitted under involuntary under deferral status to MHU for stabilization of psychiatric symptoms and safety. A demand for court will be filed -Medications : Continue Abilify 20 mg by mouth at bedtime for acute psychosis Increase Depakote to 500 mg in the morning and 1000 mg by mouth twice a day for mood stabilization/impulsivity. -1:1 security to be re-evaluated when patient is more stable and appropriate for milieu. -Continue elopement precautions (patient eloped from unit by breaking through backdoor on 10/06/2022. -Ativan and Thorazine PRN for agitation/aggression -Internal Medicine consult to perform medical evaluation and physical. -NRT - nicotine patch -SW on board for discharge planning. Encouraged the patient to participate in milieu in an appropriate manner.
[2022-10-08] MEDS: ACETAMINOPHEN TAB 325 MG TAB PO PRN (10:33)
[2022-10-08] MEDS ORDERED: ARIPiprazole IM SYRINGE 400 MG (NO CHARGE) PHARMACY STOCK IM ONE (10:36)
[2022-10-08] MEDS: BENZOCAINE 20 % GEL 11.9 GM TUBE MM SCH ×2 (11:52→22:09)
[2022-10-08] MEDS: chlorproMAZINE 25 MG TAB PO PRN (20:14)
[2022-10-08] MEDS: hydrOXYzine pamoate 25 MG CAP PO PRN (20:14)
[2022-10-09] MEDS: NICOTINE 14MG/24HR PATCH TRANSDERM SCH (08:22)
[2022-10-09] MEDS: BENZOCAINE 20 % GEL 11.9 GM TUBE MM SCH ×2 (08:23→21:57)
[2022-10-09] MEDS: ACETAMINOPHEN TAB 325 MG TAB PO PRN ×2 (08:23→15:09)
[2022-10-09] MEDS: DIVALPROEX 500 MG TABLET.DR PO SCH ×2 (08:25→19:39)
--- NOTE | 2022-10-09 14:55 | P.PN ---
Progress Note - Text Progress Note Date: 10/09/22 Interval History: Patient was seen wandering the hallways and was seen in his room accompanied by security. He asks if he can be placed on Xanax or alprazolam. When this provider stated that he has his "when necessary" medications in case of agitation, he reports that he understands. Although he has been elevated, patient has not been aggressive so far today. The patient was noted to be pacing and agitated at 20:14 requiring PO thorazine and vistaril. He denies suicidal and homicidal ideation. He does not endorse auditory and visual hallucinations. Mental Status Exam General Appearance: Patient appears to be stated age is alert, intermittently directable, and intermittently cooperative. Behavior: Patient is calmly seated without any agitated behavior. Speech: Patient's speech is fluent, loud in volume, hyperverbal. Mood/Affect: Mood is irritable. Affect is child-like, oppositional. Suicidality/Homicidality: Patient denies suicidal ideation. Denies homicidal ideation. Perceptions: Patient denies any visual hallucinations and denies any auditory angulo llucinations Though content/process: Reporting bizarre delusions while wandering the [place] but when not noting a reaction from this provider, patient becomes quiet and behaves appropriately Memory and concentration: AAOx3. Concentration is grossly intact. 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 Rule out malingering - suspect secondary gain to get out of long-term and to obtain housing; the patient has been noted by staff to appear calm and logical when observed without his knowledge. Cannabis use disorder Plan: -Patient is admitted under involuntary under deferral status to MHU for stabilization of psychiatric symptoms and safety. A demand for court will be filed -Medications : Continue Abilify 20 mg by mouth at bedtime for acute psychosis Continue Depakote to 500 mg in the morning and 1000 mg by mouth twice a day for mood stabilization/impulsivity. -Valproic acid level ordered for tomorrow morning -1:1 security to be re-evaluated when patient is more stable and appropriate for milieu. -Continue elopement precautions (patient eloped from unit by breaking through backdoor on 10/06/2022. -Ativan and Thorazine PRN for agitation/aggression -Internal Medicine consult to perform medical evaluation and physical. -NRT - nicotine patch -SW on board for discharge planning. Encouraged the patient to participate in milieu in an appropriate manner.
[2022-10-09] MEDS: chlorproMAZINE 25 MG TAB PO PRN (19:39)
[2022-10-09] MEDS: hydrOXYzine pamoate 25 MG CAP PO PRN (19:40)
[2022-10-10] MEDS: ACETAMINOPHEN TAB 325 MG TAB PO PRN ×2 (01:42→08:41)
[2022-10-10] MEDS: NICOTINE 14MG/24HR PATCH TRANSDERM SCH (08:41)
[2022-10-10] MEDS: BENZOCAINE 20 % GEL 11.9 GM TUBE MM SCH ×2 (08:42→16:02)
[2022-10-10] MEDS: DIVALPROEX 500 MG TABLET.DR PO SCH ×2 (10:51→19:48)
[2022-10-10] MEDS: ACETAMINOPHEN TAB 500 MG TAB PO PRN (16:02)
--- NOTE | 2022-10-10 18:41 | P.PN ---
Progress Note - Text Progress Note Date: 10/10/22 Interval History: Patient was seen wandering the hallways and was seen in his room accompanied by security. He states that there is no reason for him to be on Depakote and refused to take it today. He was also noncompliant with the blood draw for valproic acid this morning. When this provider attempted to explain the reason for this medication, he states that he just needs to be on Adderall. However, he has been compliant with Abilify and denies side effects. Although he has been elevated, patient has not been aggressive so far today. He denies suicidal and homicidal ideation. He does not endorse auditory and visual hallucinations. Mental Status Exam General Appearance: Patient appears to be stated age is alert, intermittently directable, and intermittently cooperative. Behavior: Patient is calmly seated without any agitated behavior. Speech: Patient's speech is fluent, loud in volume, hyperverbal. Mood/Affect: Mood is irritable. Affect is child-like, oppositional. Suicidality/Homicidality: Patient denies suicidal ideation. Denies homicidal ideation. Perceptions: Patient denies any visual hallucinations and denies any auditory hallucinations Though content/process: Reporting bizarre delusions while wandering the [place] but when not noting a reaction from this provider, patient becomes quiet and behaves appropriately Memory and concentration: AAOx3. Concentration is grossly intact. 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 Rule out malingering - suspect secondary gain to get out of [facility] and to obtain housing; the patient has been noted by staff to appear calm and logical when observed without his knowledge. Cannabis use disorder Plan: -Patient is admitted under involuntary under deferral status to [facility] for stabilization of psychiatric symptoms and safety. A demand for court will be filed -Medications : Continue Abilify 20 mg by mouth at bedtime for acute psychosis Continue Depakote to 500 mg in the morning and 1000 mg by mouth twice a day for mood stabilization/impulsivity. -Valproic acid level ordered but not completed due to patient's refusal -1:1 security due to attempt to elope. -Continue elopement precautions (patient eloped from unit by breaking through backdoor on 10/06/2022. -Ativan and Thorazine PRN for agitation/aggression -Internal Medicine consult to perform medical evaluation and physical. -NRT - nicotine patch -SW on board for discharge planning. Encouraged the patient to participate in milieu in an appropriate manner.
[2022-10-10] MEDS: chlorproMAZINE 25 MG TAB PO PRN (19:48)
[2022-10-10] MEDS: hydrOXYzine pamoate 25 MG CAP PO PRN (19:48)
[2022-10-11] MEDS: NICOTINE 14MG/24HR PATCH TRANSDERM SCH (04:38)
[2022-10-11] MEDS: ACETAMINOPHEN TAB 500 MG TAB PO PRN ×2 (04:38→10:22)
[2022-10-11] MEDS: BENZOCAINE 20 % GEL 11.9 GM TUBE MM SCH (04:39)
[2022-10-11] MEDS: DIVALPROEX 500 MG TABLET.DR PO SCH (08:17)
[2022-10-11] MEDS: hydrOXYzine pamoate 25 MG CAP PO PRN (08:19)
[2022-10-11] MEDS: chlorproMAZINE 25 MG TAB PO PRN (08:19)
--- NOTE | 2022-10-11 11:59 | P.DS ---
Providers Date of admission: 10/06/22 13:07 Expected date of discharge: 10/11/22 Attending physician: Tray Taylor MD Consults: 10/06/22 13:09 Consult Physician Routine Consulting Provider: Honey Abraham Consult Reason/Comments: Medical H&P Do you want consulting provider notified?: Yes Primary care physician: Stated None - Discharge Diagnosis(es) (1) Acute psychosis Current Visit: Yes Status: Acute Priority: High (2) Cluster B personality disorder Current Visit: Yes Status: Chronic Priority: Medium (3) Cannabis use disorder Current Visit: Yes Status: Chronic Priority: Medium Hospital Course: Admission HPI: Patient is a 21-year-old, homeless, male, who presented from long-term for acute psychotic and bizarre behaviors. Patient presented to the hospital initially on 10/04/2022 presenting for psychiatric evaluation. Initially when assessed on 10/05/2022 by this provider, the patient was noted to be intermittently bizarre, in particular when he knew that he was being directly observed. However when he was not aware of being observed, the patient appeared to be calm, linear, and logical. Therefore negative clinical certificate was filled out by this provider and he was subsequently discharged. During the initial assessment, the patient remained fixated on being prescribed Bentyl medications such as Percocet and Adderall. Shortly after discharge, the patient was picked up by police for disorderly conduct. He was brought to the hospital again on 10/05/2022 for clearance for long-term. The patient was is calmly transferred back to the emergency Department from long-term under petition for bizarre and psychotic behavior. Reportedly, the patient has been yelling nonstop for 18 hours and has been defecating, masturbating, and exposing himself to the staff at the long-term. He was subsequently admitted onto our psychiatric unit. The patient presented similarly to our psychiatric unit in August 2022. During that admission, the patient was placed on a regimen of Prolixin for management of acute psychosis. During that admission, the patient did not display any of the bizarre behaviors I was exhibited in long-term. During this admission, the patient again eloped from the unit. He was subsequently found and readmitted back onto our psychiatric unit and is currently on a one-to-one security. Upon assessment this morning, the patient continues to state bizarre statements towards this provider stating that he is a "free person." He also reports that he was knocking on people's doors in order to use the microwave because he was cold. He also states that he would like to fight for the people in [facility]. PAST PSYCHIATRIC HISTORY: Patient reportedly did well on Abilify while admitted in the long-term.he was last discharged from our hospital in August 2022 on a regimen of Prolixin 5 mg twice daily. He is currently open with [facility]. He is under deferral status. He reported no previous attempts at suicide. Hospital course: Upon admission to the unit patient was initially impulsive and eloped from the psychiatric unit, therefore he was placed on one-to-one supervision with security. Since then, the patient has been much more cooperative with treatment. He had intermittent episodes of agitation which required administration of IM medications. He was started on a regimen of Abilify and Depakote with plans to transition him to a long-acting injectable of Abilify maintena. On this regimen of Abilify and Depakote, the patient displayed significant improvement in regards to his target symptoms of impulsivity, mood lability, and endorsement of psychotic symptoms. Throughout the hospitalization, it was noted by staff that the patient would only endorse bizarre or psychotic symptoms when directly observed. However, when he was indirectly observed, the patient appeared to be calm, cooperative, and linear and logical. The patient was eventually transitioned to Abilify maintena as of 10/08/2022. On the day of discharge, the patient is not reporting any suicidal or homicidal ideation, intention, and/or p hui. He is not reporting any auditory or visual hallucinations. He is denying any paranoia or other delusions. The patient has been adherent with his medication however wishes to not take anymore Depakote. He has been intimately adherent with the Depakote. He is not reporting any access to firearms or other weapons. The reasons for his admission which included overt sexual behavior, coprolalia, and urinary incontinence has not been displayed during this psychiatric admission. As the patient longer met criteria for inpatient psychiatric admission, he was subsequently discharged back to long-term. The patient was counseled at length on the importance of medication adherence and appropriate outpatient follow-up. He was also counseled at length on appropriate behaviors and to avoid all substances including alcohol, marijuana, and illicit drugs. Mental status exam: General Appearance: Patient appears to be stated age is alert and cooperative. Patient is in no acute distress and has fair hygiene and grooming Behavior: Patient is calmly seated without any agitated behavior. Speech: Patient's speech is fluent and nonpressured. Mood/Affect: Patient reports their mood is "ready to go back to long-term", affect is congruent and euthymic. Suicidality/Homicidality: Patient denies having any suicidal or homicidal ideation intent or plan. Perceptions: Patient denies any auditory or visual hallucinations. Though content/process: There is no evidence of any delusional thought content and thought process is linear and goal-directed. Patient is future oriented. Memory and concentration: AOX3, grossly intact for the purposes of this session. Can spell "WORLD" backwards correctly. Judgment and insight: Improved with guarded prognosis Impression: Acute psychosis, resolved Cluster B personality disorder - suspect antisocial, oppositional defiant, borderline, and histrionic Rule out malingering Cannabis use disorder Plan: -Continue with discharge today as patient has improved and stabilized psychiatrically and is not currently an imminent threat to himself and/or others. Patient remain at chronically elevated risk due to his cluster B personality and manipulative behaviors. -Continue medications: Abilify 20 mg daily at bedtime for 10 days Abilify maintena 400 mg IM was administered on 10/08/2022. Next dose due on 11/05/2022. -Patient was counseled on the need for medication compliance and appropriate follow-up at mental health and also primary care for medical issues. Patient verbalized understanding and agreed. -Social work to arrange for and conduct family meeting to ensure safety upon discharge and answer any questions/concerns. Social work also to arrange for patients follow up appointments with [facility] for psychiatric care along with follow up with primary care provider. -Patient counseled on abstaining from recreational drugs and marijuana and alcohol. Was informed/educated on the adverse effects on their physical and mental health. Patient remains pre-contemplative at this time. -Patient was instructed to return to the hospital or seek immediate medical care if their psychiatric or medical symptoms do worsen or reoccur. -Psychoeducation and supportive therapy provided to patient. Risks and benefits of pharmacological treatment versus the risks and benefits of nontreatment weight and discussed. Informed consent discussion held. Common side effects of psychotropics discussed such as, but not limited to headache, GI disturbance, sexual dysfunction, movement disorders, sedation, and orthostatic hypotension. Life threatening and blackbox warnings of prescribed medications also discussed. Potential risks of operating a vehicle or heavy machinery discussed with patient at length. Advised on importance of compliance and a reliable and res ponsible manner. Patient advised to review FDA consumer labeling of all medications prior to taking. Patient verbalized understanding of potential risks, and agrees with current treatment plan. Patient advised to medically contact physician/emergency personnel if any acute changes in condition occur. Vital Signs Temp 97.5 F L 10/08/22 06:06 Pulse 78 10/08/22 06:06 Resp 15 10/08/22 06:06 BP 126/69 10/08/22 06:06 Pulse Ox 99 10/08/22 06:06 FiO2 Intake & Output 10/10/22 10/11/22 10/11/22 18:59 06:59 18:59 Weight 86.7 kg Laboratory Results Coronavirus (PCR) Not Detected (Not Detectd) 10/06/22 11:23 Allergies Allergy/AdvReac Type Severity Reaction Status Date / Time No Known Allergies Allergy Verified 10/06/22 11:06 Patient Condition at Discharge: Stable Plan - Discharge Summary New Discharge Prescriptions: New Divalproex [Depakote] 500 mg PO DAILY 30 Days tab Divalproex [Depakote] 1,000 mg PO HS 30 Days tab ARIPiprazole [Abilify] 20 mg PO HS 10 Days tab ARIPiprazole IM [Abilify Maintena] 400 mg IM QMONTHLY #1 each Nicotine 14Mg/24Hr Patch [Habitrol] 1 patch TRANSDERM DAILY 30 Days patch Benzocaine 20 % Gel [Orajel] 1 applic MM BID 30 Days each Discontinued ARIPiprazole [Abilify] 15 mg PO HS Discharge Medication List ARIPiprazole IM [Abilify Maintena] 400 mg IM QMONTHLY #1 each 10/11/22 [Rx] ARIPiprazole [Abilify] 20 mg PO HS 10 Days tab 10/11/22 [Rx] Benzocaine 20 % Gel [Orajel] 1 applic MM BID 30 Days each 10/11/22 [Rx] Divalproex [Depakote] 1,000 mg PO HS 30 Days tab 10/11/22 [Rx] Divalproex [Depakote] 500 mg PO DAILY 30 Days tab 10/11/22 [Rx] Nicotine 14Mg/24Hr Patch [Habitrol] 1 patch TRANSDERM DAILY 30 Days patch 10/11/22 [Rx] Follow up Appointment(s)/Referral(s): Carlos Aguiar [Other] - 10/11/22 4:00 pm ServicesRamírez [Other] - 1 Week Patient Instructions/Handouts: How to Stop Smoking (DC), Psychotic Disorder (DC) Activity/Diet/Wound Care/Special Instructions: Avoid the use of street drugs and alcohol. Take all prescriptions as prescribed. When you are in need of refills on your medications, please contact your medical provider and/or outpatient psychiatrist to have this done. Please go to scheduled outpatient appointment for aftercare treatment. If symptoms return or become worse, call the crisis line at and/or go to the nearest emergency room for evaluation. Discharge Disposition: DC/TRANSFER COURT/LAW
== END 2022-10-11 14:55 | DRG 885 ==
LOC: EC 10:31 → 3MHU 13:07
PROVIDERS: ADMIT Psychiatry & Neurology Psychiatry; ATTEND Psychiatry & Neurology Psychiatry
DX: F23 Brief psychotic disorder (principal); F12.10 Cannabis abuse, uncomplicated; Z71.6 Tobacco abuse counseling; F17.210 Nicotine dependence, cigarettes, uncomplicated; Z71.51 Drug abuse counseling and surveillance of drug abuser; Z20.822 Contact with and (suspected) exposure to COVID-19; Z28.310 Unvaccinated for COVID-19; Z28.21 Immunization not carried out because of patient refusal; Z59.00 Homelessness unspecified; Z65.3 Problems related to other legal circumstances; F60.89 Other specific personality disorders; F31.9 Bipolar disorder, unspecified; R32 Unspecified urinary incontinence; Z91.199 Patient's noncompliance with other medical treatment and regimen due to unspecified reason
CPT/HCPCS: 82075; 87635; 99285

== ENCOUNTER 2022-12-04 22:05 | Emergency (ER) | payer OTHER ==
[2022-12-04 22:39] VITALS: BP 134/77; PULSE 78; RESP 17; TEMP 97.6
--- NOTE | 2022-12-04 22:57 | ED ---
Psych HPI - General Chief Complaint: Psychiatric Symptoms Stated Complaint: Mental Health Time Seen by Provider: 12/04/22 22:20 Source: patient Mode of arrival: ambulatory - History of Present Illness Initial Comments: This patient is 22-year-old man who presents with complaint that he is having racing thoughts and needs to get back on his medication. The patient states that he takes Abilify, but had run out of his medicine and so he is been without medication for a number of weeks. The patient states that he had a stressful phone call about 2 hours ago and that's since that time he has had racing thoughts. He is denying homicidal or suicidal ideation, but he does request to receive dose of his medications so that he can have his mood stabilized. Patient states he doesn't feel like he needs to be admitted today. MD Complaint: other -: hour(s) Associated Psychiatric Symptoms: racing thoughts Quality: constant Improves With: medication Context: not taking psychiatric medications, significant life stressor Associated Symptoms: denies other symptoms - Related Data Previous Rx's Medication Instructions Recorded ARIPiprazole IM [Abilify Maintena] 400 mg IM QMONTHLY #1 each 10/11/22 Benzocaine 20 % Gel [Orajel] 1 applic MM BID 30 Days each 10/11/22 Divalproex [Depakote] 1,000 mg PO HS 30 Days tab 10/11/22 Divalproex [Depakote] 500 mg PO DAILY 30 Days tab 10/11/22 Nicotine 14Mg/24Hr Patch [Habitrol] 1 patch TRANSDERM DAILY 30 Days 10/11/22 patch ARIPiprazole [Abilify] 20 mg PO HS #10 tablet 12/04/22 ARIPiprazole [Abilify] 20 mg PO HS 10 Days tab 12/04/22 LORazepam [Ativan] 1 mg PO TID 3 Days #9 tab 12/04/22 Allergies Allergy/AdvReac Type Severity Reaction Status Date / Time No Known Allergies Allergy Verified 10/06/22 11:06 Review of Systems ROS Statement: Those systems with pertinent positive or pertinent negative responses have been documented in the HPI. ROS Other: All systems not noted in ROS Statement are negative. Constitutional: Denies: fever Respiratory: Denies: cough, dyspnea Cardiovascular: Denies: chest pain, palpitations Gastrointestinal: Denies: abdominal pain, vomiting Genitourinary: Denies: dysuria, hematuria Musculoskeletal: Denies: back pain Neurological: Denies: headache, weakness, confusion Psychiatric: Reports: anxiety, auditory hallucinations. Denies: depression, visual hallucinations, homicidal thoughts, suicidal thoughts Past Medical History Past Medical History: No Reported History History of Any Multi-Drug Resistant Organisms: None Reported Past Surgical History: No Surgical Hx Reported Past Psychological History: Bipolar Smoking Status: Current every day smoker Past Alcohol Use History: Occasional Past Drug Use History: None Reported - Past Family History Mother Family Medical History: Unable to Obtain (due to patient's psychosis) General Exam Limitations: no limitations General appearance: alert, in no apparent distress, anxious Head exam: Present: atraumatic, normocephalic Eye exam: Present: normal appearance. Absent: scleral icterus, conjunctival injection Respiratory exam: Present: normal lung sounds bilaterally. Absent: respiratory distress, wheezes, rales, rhonchi, stridor Cardiovascular Exam: Present: regular rate, normal rhythm, normal heart sounds. Absent: systolic murmur, diastolic murmur, rubs, gallop GI/Abdominal exam: Present: soft. Absent: distended, tenderness, guarding, rebound, rigid, mass Extremities exam: Present: normal inspection, normal capillary refill. Absent: pedal edema, calf tenderness Back exam: Present: normal inspection. Absent: CVA tenderness (R), CVA tenderness (L) Neurological exam: Present: alert, oriented X3 Psychiatric exam: Present: anxious. Absent: depressed, agitated, flat affect, homicidal ideation, suicidal ideation Skin exam: Present: warm, dry, intact, normal color. Absent: rash Course Vital Signs 12/04/22 12/04/22 22:08 22:29 Temperature 98.9 F 97.6 F Pulse Rate 76 78 Respiratory 18 17 Rate Blood Pressure 135/78 134/77 O2 Sat by Pulse 96 98 Oximetry Medical Decision Making - Medical Decision Making This patient is 22-year-old man presenting with complaint that he is out of his medication and he is developing recurrent psychiatric symptoms. No suicidal or homicidal ideation. He will be provided with a dose of his medication and to follow-up with his outpatient provider Did you speak to anyone other than the patient for history? @ -[no Did you review nursing and triage notes? @ -[agree Were old charts reviewed? @ -[No Differential Diagnosis? @ - Differential diagnosis includes patient's underlying psychiatric disorder, substance abuse, acute anxiety EKG interpreted by me (3pts min.)? @ -[none] X-rays interpreted by me (1pt min.)? @ -[See chart CT interpreted by me (1pt min.)? @ -[none] U/S interpreted by me (1pt. min.)? @ -[none] What testing was considered but not performed? (CT, X-rays, U/S, labs)? Why? @ [None What meds were considered but not given? Why? @ -[none] Did you discuss the management of the patient with other professionals? @ -[EPS nurse Did you reconcile home meds? @ -[Yes Was smoking cessation discussed for >3mins.? @ -[none] Was critical care preformed (if so, how long)? @ -[none] Were there social determinants of health that impacted care today? How? (Homelessness, low income, unemployed, alcoholism, drug addiction, transportation, low edu. Level, literacy, decrease access to med. care, halfway, rehab)? @ -[Yes poor access to medical care Was there de-escalation of care discussed even if they declined? (Discuss DNR or withdrawal of care, Hospice)? @ -[No What co-morbidities impacted this encounter? (DM, HTN, Smoking, COPD, CAD, Cancer, CVA, Hep., AIDS, mental health diagnosis, sleep apnea, morbid obesity)? @ -[Patient's underlying psychiatric disorders Was patient admitted / discharged? @ -[Discharged Undiagnosed new problem with uncertain prognosis? @ -[none] Drug Therapy requiring intensive monitoring for toxicity (Heparin, Nitro, Insulin, Cardizem)? @ -[none] Were any procedures done? @ -[none] Diagnosis/symptom? @ -[1. Recurrent psychosis, mild 2. Medication refill Acute, or Chronic, or Acute on Chronic? @ -[default] Uncomplicated (without systemic symptoms) or Complicated (systemic symptoms)? @ -[uncomplicated Side effects of treatment? @ -[none] Exacerbation, Progression, or Severe Exacerbation] @ -[no] Poses a threat to life or bodily function? @ -[No Disposition Clinical Impression: Acute psychosis Disposition: HOME SELF-CARE Condition: Good Prescriptions: ARIPiprazole [Abilify] 20 mg PO HS 10 Days tab ARIPiprazole [Abilify] 20 mg PO HS #10 tablet LORazepam [Ativan] 1 mg PO TID 3 Days #9 tab Is patient prescribed a controlled substance at d/c from ED?: No Referrals: None,Stated [Primary Care Provider] - 1-2 days
[2022-12-04] MEDS ORDERED: ARIPiprazole IM 400 MG VIAL (NO COST) PHARMACY STOCK IM ONE (23:00)
== END 2022-12-04 23:53 | disposition home or self-care (01) ==
LOC: EC 22:05
DX: F23 Brief psychotic disorder (principal); F31.9 Bipolar disorder, unspecified; F17.200 Nicotine dependence, unspecified, uncomplicated
CPT/HCPCS: 99284; 82075; 96372; J0401

== ENCOUNTER 2022-12-06 00:13 | Emergency (ER) | payer OTHER ==
[2022-12-06 00:19] VITALS: BP 120/67; PULSE 65; RESP 16; TEMP 97.9
[2022-12-06 02:07] LABS: Amphetamine Screen,Urine Not Detected (NotDetected); Barbiturate Screen,Urine Not Detected (NotDetected); Benzodiazepines Screen,Urine Not Detected (NotDetected); Cocaine Screen,Urine Not Detected (NotDetected); Methadone Screen, Urine Not Detected (NotDetected); Opiate Screen,Urine Not Detected (NotDetected); Oxycodone Screen, Urine Not Detected (NotDetected); Phencyclidine Screen,Urine Not Detected (NotDetected); Tricyclic Antidepressant,Urine Not Detected (NotDetected); Urn Cannabinoid Scrn Detected (NotDetected)
--- NOTE | 2022-12-06 03:21 | ED ---
Psych HPI - General Chief Complaint: Medical Clearance Stated Complaint: Mental health Time Seen by Provider: 12/06/22 01:03 Source: patient, RN notes reviewed Mode of arrival: ambulatory Limitations: no limitations - History of Present Illness Initial Comments: This is a 22-year-old male who presents to the emergency department for psychiatric evaluation. Patient states that he is depressed with suicidal ideations, however he denies having any plan. He has been here multiple times in the past, most recently yesterday, for the same complaints. He was discharged with a prescription for Ativan yesterday, however he does not have any form of identification so he cannot pickle solution maker this prescription. However, his largest reason for presenting today is because he is unable to sleep due to being out of his melatonin. He does not believe that he is an active threat to himself and feels safe going home. Also states that he has a job interview tomorrow. Denies any fevers, chills, sore throat, cough, dyspnea, chest pain, palpitations, abdominal pain, nausea, vomiting, diarrhea, back pain, or headaches. MD Complaint: suicidal ideation, feels depressed - Related Data Previous Rx's Medication Instructions Recorded ARIPiprazole IM [Abilify Maintena] 400 mg IM QMONTHLY #1 each 10/11/22 Benzocaine 20 % Gel [Orajel] 1 applic MM BID 30 Days each 10/11/22 Divalproex [Depakote] 1,000 mg PO HS 30 Days tab 10/11/22 Divalproex [Depakote] 500 mg PO DAILY 30 Days tab 10/11/22 Nicotine 14Mg/24Hr Patch [Habitrol] 1 patch TRANSDERM DAILY 30 Days 10/11/22 patch ARIPiprazole [Abilify] 20 mg PO HS #10 tablet 12/04/22 ARIPiprazole [Abilify] 20 mg PO HS 10 Days tab 12/04/22 LORazepam [Ativan] 1 mg PO TID 3 Days #9 tab 12/04/22 Allergies Allergy/AdvReac Type Severity Reaction Status Date / Time No Known Allergies Allergy Verified 10/06/22 11:06 Review of Systems ROS Statement: Those systems with pertinent positive or pertinent negative responses have been documented in the HPI. ROS Other: All systems not noted in ROS Statement are negative. Past Medical History Past Medical History: No Reported History History of Any Multi-Drug Resistant Organisms: None Reported Past Surgical History: No Surgical Hx Reported Past Psychological History: Bipolar Smoking Status: Current every day smoker Past Alcohol Use History: Occasional Past Drug Use History: None Reported - Past Family History Mother Family Medical History: Unable to Obtain (due to patient's psychosis) General Exam Limitations: no limitations General appearance: alert, in no apparent distress Head exam: Present: atraumatic, normocephalic, normal inspection Respiratory exam: Present: normal lung sounds bilaterally. Absent: respiratory distress, wheezes, rales, rhonchi, stridor Cardiovascular Exam: Present: regular rate, normal rhythm, normal heart sounds. Absent: systolic murmur, diastolic murmur, rubs, gallop, clicks Neurological exam: Present: alert, oriented X3, CN II-XII intact Psychiatric exam: Present: normal affect, normal mood Skin exam: Present: warm, dry, intact, normal color. Absent: rash Course Vital Signs 12/06/22 00:14 Temperature 97.9 F Pulse Rate 65 Respiratory 16 Rate Blood Pressure 120/67 O2 Sat by Pulse 97 Oximetry Medical Decision Making - Medical Decision Making This is a 22-year-old male who presents to the emergency department for insomnia and psychiatric evaluation. Was pt. sent in by a medical professional or institution? @ -No Did you speak to anyone other than the patient for history? @ -No Did you review nursing and triage notes? @ -Yes, and I agree, it is accurate with regards to the patient's symptoms. Were old charts reviewed? @ -No Differential Diagnosis? @ -Not applicable What testing was considered but not performed? (CT, X-rays, U/S, labs)? Why? @ -None What meds were considered but not given? Why? @ -None Did you discuss the management of the patient with other professionals? @ -Yes, EPS states that the patient is safe for discharge home. He is not an active threat to himself and just wants a dose of melatonin to help him sleep. Did you reconcile home meds? @ -No Was smoking cessation discussed for >3mins.? @ -No Was critical care preformed (if so, how long)? @ -No Were there social determinants of health that impacted care today? How? (Homelessness, low income, unemployed, alcoholism, drug addiction, transportation, low edu. Level, literacy, decrease access to med. care, half-way, rehab)? @ -Yes, the patient is homeless with multiple mental health problems. It is difficult for him to access his medication and transportation. Additionally, being homeless contributes to his depression. Was there de-escalation of care discussed even if they declined? (Discuss DNR or withdrawal of care, Hospice)? @ -No What co-morbidities impacted this encounter? (DM, HTN, Smoking, COPD, CAD, Cancer, CVA, Hep., AIDS, mental health diagnosis, sleep apnea, morbid obesity)? @ -Mental health problems Was patient admitted / discharged? @ -Discharged. Patient does not meet psychiatric admission criteria. His largest complaint is insomnia and being out of his melatonin. There is no current exacerbation of his depression and states that his suicidal ideations are always there and not different than normal. Denies any plan or intent to act on these statements. Also states that he feels safe going home. Additionally, states that he has a job interview tomorrow that he needs to make it to. He was given a dose of melatonin prior to discharge. Educated the patient on the need to have some sort of identification so he can obtain his medications. Undiagnosed new problem with uncertain prognosis? @ -None Drug Therapy requiring intensive monitoring for toxicity (Heparin, Nitro, Insulin, Cardizem)? @ -None Were any procedures done? @ -None Diagnosis/symptom? @ -Insomnia Acute, or Chronic, or Acute on Chronic? @ -Acute Uncomplicated (without systemic symptoms) or Complicated (systemic symptoms)? @ -Uncomplicated Side effects of treatment? @ -None Exacerbation, Progression, or Severe Exacerbation] @ -Not applicable Poses a threat to life or bodily function? @ -May impact his function if the insomnia becomes severe enough. Return precautions reviewed in depth, the patient is instructed to return to the emergency department with any new, worsening, or concerning symptoms. Patient verbalized understanding. This case was discussed in detail with the attending ED physician, Dr. Rodriguez. Presentation, findings, and treatment plan discussed in detail as well. - Lab Data Lab Results 12/06/22 Range/Units 01:48 Urine Opiates Screen Not Detected (NotDetected) Ur Oxycodone Screen Not Detected (NotDetected) Urine Methadone Screen Not Detected (NotDetected) Ur Propoxyphene Screen Not Detected (NotDetected) Ur Barbiturates Screen Not Detected (NotDetected) U Tricyclic Antidepress Not Detected (NotDetected) Ur Phencyclidine Scrn Not Detected (NotDetected) Ur Amphetamines Screen Not Detected (NotDetected) U Methamphetamines Scrn Not Detected (NotDetected) U Benzodiazepines Scrn Not Detected (NotDetected) Urine Cocaine Screen Not Detected (NotDetected) U Marijuana (THC) Screen Detected H (NotDetected) Disposition Clinical Impression: Insomnia Disposition: HOME SELF-CARE Instructions (If sedation given, give patient instructions): Insomnia (ED) Additional Instructions: Return to the emergency department with any new, worsening, or concerning symptoms. Consider going to the paralegal secretary to obtain an ID card so that you can purchase your medications. Follow up with your primary care provider in 1-2 days. Is patient prescribed a controlled substance at d/c from ED?: No Referrals: None,Stated [Primary Care Provider] - 1-2 days
[2022-12-06] MEDS ORDERED: MELATONIN 3 MG TABLET PO SCH ×2 (03:24→21:00)
== END 2022-12-06 03:32 | disposition home or self-care (01) ==
LOC: EC 00:13
DX: G47.00 Insomnia, unspecified (principal); F17.210 Nicotine dependence, cigarettes, uncomplicated
CPT/HCPCS: 80306; 82075; 99284

== ENCOUNTER 2022-12-10 14:51 | Emergency (ER) | payer OTHER ==
[2022-12-10 14:55] VITALS: TEMP 97.5
--- NOTE | 2022-12-10 15:54 | ED ---
Recheck HPI - General Chief Complaint: Recheck/Abnormal Lab/Rx Stated Complaint: trouble sleeping Time Seen by Provider: 12/10/22 15:44 Source: patient, RN notes reviewed Mode of arrival: ambulatory Limitations: no limitations - History of Present Illness Initial Comments: This is a 22-year-old male who presents to the emergency department for difficulty sleeping. Patient is well-known to this emergency department for psychiatric issues and has been here several times recently for complaints of insomnia. Patient states that he is out of melatonin and needs it to fall asleep. He is also homeless, making it difficult for him to access medication. He otherwise has no concerns or complaints. Denies any fevers, chills, sore throat, cough, dyspnea, chest pain, palpitations, abdominal pain, nausea, vomiting, diarrhea, back pain, or headaches. MD Complaint: medication refill request - Related Data Previous Rx's Medication Instructions Recorded ARIPiprazole IM [Abilify Maintena] 400 mg IM QMONTHLY #1 each 10/11/22 Benzocaine 20 % Gel [Orajel] 1 applic MM BID 30 Days each 10/11/22 Divalproex [Depakote] 1,000 mg PO HS 30 Days tab 10/11/22 Divalproex [Depakote] 500 mg PO DAILY 30 Days tab 10/11/22 Nicotine 14Mg/24Hr Patch [Habitrol] 1 patch TRANSDERM DAILY 30 Days 10/11/22 patch ARIPiprazole [Abilify] 20 mg PO HS #10 tablet 12/04/22 ARIPiprazole [Abilify] 20 mg PO HS 10 Days tab 12/04/22 LORazepam [Ativan] 1 mg PO TID 3 Days #9 tab 12/04/22 Melatonin 5 mg PO HS PRN #10 tablet 12/10/22 Allergies Allergy/AdvReac Type Severity Reaction Status Date / Time No Known Allergies Allergy Verified 12/10/22 14:55 Review of Systems ROS Statement: Those systems with pertinent positive or pertinent negative responses have been documented in the HPI. ROS Other: All systems not noted in ROS Statement are negative. Past Medical History Past Medical History: No Reported History Additional Past Medical History / Comment(s): Insomnia History of Any Multi-Drug Resistant Organisms: None Reported Past Surgical History: No Surgical Hx Reported Past Psychological History: Bipolar, Schizoaffective Disorder, Schizophrenia Smoking Status: Current every day smoker Past Alcohol Use History: Occasional Past Drug Use History: None Reported - Past Family History Mother Family Medical History: Unable to Obtain (due to patient's psychosis) General Exam Limitations: no limitations General appearance: alert, in no apparent distress Head exam: Present: atraumatic, normocephalic, normal inspection Respiratory exam: Present: normal lung sounds bilaterally. Absent: respiratory distress, wheezes, rales, rhonchi, stridor Cardiovascular Exam: Present: regular rate, normal rhythm, normal heart sounds. Absent: systolic murmur, diastolic murmur, rubs, gallop, clicks Neurological exam: Present: alert, oriented X3, CN II-XII intact Psychiatric exam: Present: normal affect, normal mood Skin exam: Present: warm, dry, intact, normal color. Absent: rash Course Vital Signs 12/10/22 12/10/22 14:52 16:31 Temperature 97.5 F L Pulse Rate 100 84 Respiratory 20 14 Rate Blood Pressure 132/88 136/79 O2 Sat by Pulse 99 98 Oximetry Medical Decision Making - Medical Decision Making This is a 22-year-old male who presents to the emergency department for insomnia. Was pt. sent in by a medical professional or institution? @ -No Did you speak to anyone other than the patient for history? @ -No Did you review nursing and triage notes? @ -Yes, and I agree, it is accurate with regards to the patient's symptoms. Were old charts reviewed? @ -No Differential Diagnosis? @ -Differential insomnia: Anxiety, shift work, psychiatric issues, hyperthyroidism, excessive caffeine intake, stimulant use, this is not meant to be an all-inclusive list. What testing was considered but not performed? (CT, X-rays, U/S, labs)? Why? @ -None What meds were considered but not given? Why? @ -None Did you discuss the management of the patient with other professionals? @ -No Did you reconcile home meds? @ -No Was smoking cessation discussed for >3mins.? @ -No Was critical care preformed (if so, how long)? @ -No Were there social determinants of health that impacted care today? How? (Homelessness, low income, unemployed, alcoholism, drug addiction, transportation, low edu. Level, literacy, decrease access to med. care, residential, rehab)? @ -Yes, the patient is homeless making it difficult for him to access medication and make it to appointments. Was there de-escalation of care discussed even if they declined? (Discuss DNR or withdrawal of care, Hospice)? @ -No What co-morbidities impacted this encounter? (DM, HTN, Smoking, COPD, CAD, Cancer, CVA, Hep., AIDS, mental health diagnosis, sleep apnea, morbid obesity)? @ -Mental health problems Was patient admitted / discharged? @ -Discharged. Patient was given a dose of melatonin in the emergency department and a prescription was provided. This was provided in the form of a paper prescription per the patient's request. He will continue to follow up with [facility] for ongoing management of other mental health problems. Undiagnosed new problem with uncertain prognosis? @ -None Drug Therapy requiring intensive monitoring for toxicity (Heparin, Nitro, Insulin, Cardizem)? @ -None Were any procedures done? @ -None Diagnosis/symptom? @ -Insomnia Acute, or Chronic, or Acute on Chronic? @ -Chronic Uncomplicated (without systemic symptoms) or Complicated (systemic symptoms)? @ -Uncomplicated Side effects of treatment? @ -None Exacerbation, Progression, or Severe Exacerbation] @ -No Poses a threat to life or bodily function? @ -No Return precautions reviewed in depth, the patient is instructed to return to the emergency department with any new, worsening, or concerning symptoms. Patient verbalized understanding. This case was discussed in detail with the attending ED physician, Dr. Rodriguez. Presentation, findings, and treatment plan discussed in detail as well. Disposition Clinical Impression: Insomnia Disposition: HOME SELF-CARE Instructions (If sedation given, give patient instructions): Insomnia (ED) Additional Instructions: Return to the emergency department with any new, worsening, or concerning symptoms. Take the melatonin as 1 tablet each night as needed for difficulty sleeping. Follow up with your primary care provider in 1-2 days. Prescriptions: Melatonin 5 mg PO HS PRN #10 tablet PRN Reason: Insomnia Is patient prescribed a controlled substance at d/c from ED?: No Referrals: None,Stated [Primary Care Provider] - 1-2 days
[2022-12-10 16:31] VITALS: BP 136/79; PULSE 84; RESP 14
[2022-12-10] MEDS ORDERED: MELATONIN 3 MG TABLET PO SCH (21:00)
== END 2022-12-10 16:31 | disposition home or self-care (01) ==
LOC: EC 14:51
DX: G47.00 Insomnia, unspecified (principal); F31.9 Bipolar disorder, unspecified; F17.200 Nicotine dependence, unspecified, uncomplicated
CPT/HCPCS: 99283

== ENCOUNTER 2022-12-11 19:04 | Emergency (ER) | payer OTHER ==
[2022-12-11 19:23] VITALS: BP 126/63; PULSE 99; RESP 16; TEMP 98.4
[2022-12-11 20:00] LABS: Appearance,Urine Clear (Clear); Bilirubin,Urine Negative (Negative); Blood,Urine Negative (Negative); Color,Urine Yellow; Glucose,Urine (UA) Negative (Negative); Ketones,Urine Trace (Negative); Leukocyte Esterase,Urine Negative (Negative); Nitrite,Urine Negative (Negative); Protein,Urine Trace (Negative); Specific Gravity,Urine 1.027 (1.001-1.035)
[2022-12-11 20:15] LABS: Amphetamine Screen,Urine Not Detected (NotDetected); Barbiturate Screen,Urine Not Detected (NotDetected); Benzodiazepines Screen,Urine Not Detected (NotDetected); Cocaine Screen,Urine Not Detected (NotDetected); Methadone Screen, Urine Not Detected (NotDetected); Opiate Screen,Urine Not Detected (NotDetected); Oxycodone Screen, Urine Not Detected (NotDetected); Phencyclidine Screen,Urine Not Detected (NotDetected); Tricyclic Antidepressant,Urine Detected (NotDetected); Urn Cannabinoid Scrn Detected (NotDetected)
--- NOTE | 2022-12-11 20:41 | ED ---
Psych HPI - General Chief Complaint: Psychiatric Symptoms Stated Complaint: Mental Health Time Seen by Provider: 12/11/22 20:18 Source: patient, RN notes reviewed, old records reviewed Mode of arrival: EMS - History of Present Illness Initial Comments: 22-year-old male up ambulating in the [place] presents with complaints of "feeling manic "seeing people that are not there. He said this started today. He was seen in the hospital last week for insomnia states that has improved and had a good night sleep last night. He denies any suicidal or homicidal ideations. He states that he does smoke cigarettes, and vapes. Smokes anything he can get. States that he does not feel that the people at [facility] where he stays can be trusted. MD Complaint: other (Visual hallucinations , Seeing people that are not there) -: days(s) (1) Associated Psychiatric Symptoms: visual hallucinations History of same: No Improves With: none Associated Symptoms: denies other symptoms Treatments Prior to Arrival: none - Related Data Previous Rx's Medication Instructions Recorded ARIPiprazole IM [Abilify Maintena] 400 mg IM QMONTHLY #1 each 10/11/22 Benzocaine 20 % Gel [Orajel] 1 applic MM BID 30 Days each 10/11/22 Divalproex [Depakote] 1,000 mg PO HS 30 Days tab 10/11/22 Divalproex [Depakote] 500 mg PO DAILY 30 Days tab 10/11/22 Nicotine 14Mg/24Hr Patch [Habitrol] 1 patch TRANSDERM DAILY 30 Days 10/11/22 patch ARIPiprazole [Abilify] 20 mg PO HS #10 tablet 12/04/22 ARIPiprazole [Abilify] 20 mg PO HS 10 Days tab 12/04/22 LORazepam [Ativan] 1 mg PO TID 3 Days #9 tab 12/04/22 Melatonin 5 mg PO HS PRN #10 tablet 12/10/22 Allergies Allergy/AdvReac Type Severity Reaction Status Date / Time No Known Allergies Allergy Verified 12/10/22 14:55 Review of Systems ROS Statement: Those systems with pertinent positive or pertinent negative responses have been documented in the HPI. ROS Other: All systems not noted in ROS Statement are negative. Past Medical History Past Medical History: No Reported History Additional Past Medical History / Comment(s): Insomnia History of Any Multi-Drug Resistant Organisms: None Reported Past Surgical History: No Surgical Hx Reported Past Psychological History: ADD/ADHD, Bipolar, Schizoaffective Disorder, Schizophrenia Smoking Status: Current every day smoker Past Alcohol Use History: Rare Past Drug Use History: None Reported - Past Family History Mother Family Medical History: Unable to Obtain (due to patient's psychosis) General Exam General appearance: alert, in no apparent distress Head exam: Present: atraumatic, normocephalic Eye exam: Absent: scleral icterus, conjunctival injection, periorbital swelling Neck exam: Absent: tenderness, meningismus Respiratory exam: Present: normal lung sounds bilaterally. Absent: respiratory distress, accessory muscle use Cardiovascular Exam: Present: regular rate GI/Abdominal exam: Present: soft Extremities exam: Present: normal capillary refill. Absent: pedal edema Back exam: Absent: tenderness Neurological exam: Present: alert, oriented X3, normal gait Psychiatric exam: Present: other (Inability to sit still, poor eye contact). Absent: agitated, homicidal ideation, suicidal ideation Skin exam: Present: warm, dry, normal color. Absent: cyanosis, diaphoretic, pallor Course Vital Signs 12/11/22 19:19 Temperature 98.4 F Pulse Rate 99 Respiratory 16 Rate Blood Pressure 126/63 O2 Sat by Pulse 98 Oximetry Medical Decision Making - Medical Decision Making EPS nurse did speak with patient and patient can be discharged back to [facility]. Continue his medications and follow up with [facility]. Case discussed with Dr. Hathaway. Was pt. sent in by a medical professional or institution? @ -no Did you speak to anyone other than the patient for history? @ -no Did you review nursing and triage notes? @ -yes i agree Were old charts reviewed? @ -no Differential Diagnosis? @ -Alcohol intoxication, drug intoxication, acute psychosis, depression, anxiety, suicidal ideation, homicidal ideation, medication noncompliance What testing was considered but not performed? (CT, X-rays, U/S, labs)? Why? @ none What meds were considered but not given? Why? @ -none Did you discuss the management of the patient with other professionals? @ -EPS nurse Did you reconcile home meds? @ -no Was smoking cessation discussed for >3mins.? @ -yes Was critical care preformed (if so, how long)? @ -no Were there social determinants of health that impacted care today? How? (Homelessness, low income, unemployed, alcoholism, drug addiction, transportation, low edu. Level, literacy, decrease access to med. care, [facility], rehab)? @ -Low education level Was there de-escalation of care discussed even if they declined? (Discuss DNR or withdrawal of care, Hospice)? @ -no What co-morbidities impacted this encounter? (DM, HTN, Smoking, COPD, CAD, Cancer, CVA, Hep., AIDS, mental health diagnosis, sleep apnea, morbid obesity)? @ -Mental illness, Bipolar, schizophrenia, ADHD Was patient admitted / discharged? @ -Discharged Undiagnosed new problem with uncertain prognosis? @ -[none] Drug Therapy requiring intensive monitoring for toxicity (Heparin, Nitro, Insulin, Cardizem)? @ -no Were any procedures done? @ -no Diagnosis/symptom? @ -Depression, anxiety, adjustment reaction Acute, or Chronic, or Acute on Chronic? @ -Acute on chronic Uncomplicated (without systemic symptoms) or Complicated (systemic symptoms)? @ -Complicated Side effects of treatment? @ -[none] Exacerbation, Progression, or Severe Exacerbation] @ -[no] Poses a threat to life or bodily function? @ -[no] - Lab Data Lab Results 12/11/22 12/11/22 Range/Units 19:30 19:33 Urine Color Yellow Urine Appearance Clear (Clear) Urine pH 7.0 (5.0-8.0) Ur Specific [place] 1.027 (1.001-1.035) Urine Protein Trace H (Negative) Urine Glucose (UA) Negative (Negative) Urine Ketones Trace H (Negative) Urine Blood Negative (Negative) Urine Nitrite Negative (Negative) Urine Bilirubin Negative (Negative) Urine Urobilinogen 8.0 (<2.0) mg/dL Ur Leukocyte Esterase Negative (Negative) Urine Opiates Screen Not Detected (NotDetected) Ur Oxycodone Screen Not Detected (NotDetected) Urine Methadone Screen Not Detected (NotDetected) Ur Propoxyphene Screen Not Detected (NotDetected) Ur Barbiturates Screen Not Detected (NotDetected) U Tricyclic Antidepress Detected H (NotDetected) Ur Phencyclidine Scrn Not Detected (NotDetected) Ur Amphetamines Screen Not Detected (NotDetected) U Methamphetamines Scrn Not Detected (NotDetected) U Benzodiazepines Scrn Not Detected (NotDetected) Urine Cocaine Screen Not Detected (NotDetected) U Marijuana (THC) Screen Detected H (NotDetected) Disposition Clinical Impression: Adjustment reaction of adult life Disposition: HOME SELF-CARE Condition: Good Instructions (If sedation given, give patient instructions): Mood Disorders (ED) Additional Instructions: Continue previously prescribed medications. Follow up with community mental health. Return to the emergency room with any new or concerning symptoms especially suicidal or homicidal ideations. Is patient prescribed a controlled substance at d/c from ED?: No Referrals: None,Stated [Primary Care Provider] - 1-2 days Time of Disposition: 02:12
== END 2022-12-12 02:17 | disposition home or self-care (01) ==
LOC: EC 19:04
DX: F43.20 Adjustment disorder, unspecified (principal); F31.9 Bipolar disorder, unspecified; F17.210 Nicotine dependence, cigarettes, uncomplicated
CPT/HCPCS: 80306; 81003; 82075; 99285

== ENCOUNTER 2023-02-20 02:48 | Emergency (ER) | payer OTHER ==
[2023-02-20 02:59] VITALS: BP 145/91; PULSE 104; RESP 18; TEMP 98.9
--- NOTE | 2023-02-20 03:10 | ED ---
General Adult HPI - General Chief complaint: Psychiatric Symptoms Stated complaint: Mental Health Time Seen by Provider: 02/20/23 02:59 Source: patient Mode of arrival: ambulatory Limitations: no limitations - History of Present Illness Initial comments: Dictation was produced using Cloze dictation software. please excuse any grammatical, word or spelling errors. Chief Complaint: 22-year-old male presents to the emergency department for depression History of Present Illness: 22-year-old male presents emergency department for depression. Does feel suicidal but does not have a specific plan. Patient has history of vital illness. States that he needs refills on his medications. Suffered from insomnia at the moment. Denies any visual or auditory hallucinations. The ROS documented in this emergency department record has been reviewed and confirmed by me. Those systems with pertinent positive or negative responses have been documented in the HPI. All other systems are other negative and/or noncontributory. - Related Data Previous Rx's Medication Instructions Recorded ARIPiprazole IM [Abilify Maintena] 400 mg IM QMONTHLY #1 each 10/11/22 Benzocaine 20 % Gel [Orajel] 1 applic MM BID 30 Days each 10/11/22 Divalproex [Depakote] 1,000 mg PO HS 30 Days tab 10/11/22 Divalproex [Depakote] 500 mg PO DAILY 30 Days tab 10/11/22 Nicotine 14Mg/24Hr Patch [Habitrol] 1 patch TRANSDERM DAILY 30 Days 10/11/22 patch ARIPiprazole [Abilify] 20 mg PO HS #10 tablet 12/04/22 ARIPiprazole [Abilify] 20 mg PO HS 10 Days tab 12/04/22 LORazepam [Ativan] 1 mg PO TID 3 Days #9 tab 12/04/22 Melatonin 5 mg PO HS PRN #10 tablet 12/10/22 Allergies Allergy/AdvReac Type Severity Reaction Status Date / Time No Known Allergies Allergy Verified 02/20/23 02:51 Review of Systems ROS Statement: Those systems with pertinent positive or pertinent negative responses have been documented in the HPI. ROS Other: All systems not noted in ROS Statement are negative. Past Medical History Past Medical History: No Reported History Additional Past Medical History / Comment(s): Insomnia History of Any Multi-Drug Resistant Organisms: None Reported Past Surgical History: No Surgical Hx Reported Past Psychological History: ADD/ADHD, Bipolar, Schizoaffective Disorder, Schizophrenia Smoking Status: Current every day smoker Past Alcohol Use History: Rare Past Drug Use History: Marijuana - Past Family History Mother Family Medical History: Unable to Obtain (due to patient's psychosis) General Exam - General Exam Comments Initial Comments: PHYSICAL EXAM: General Impression: Alert and oriented x3, not in acute distress HEENT: Normocephalic atraumatic, extra-ocular movements intact, pupils equal and reactive to light bilaterally, mucous membranes moist. Cardiovascular: Heart regular rate and rhythm Chest: Able to complete full sentences, no retractions, no tachypnea Abdomen: abdomen soft, non-tender, non-distended, no organomegaly Musculoskeletal: Pulses present and equal in all extremities, no peripheral edema Motor: no focal deficits noted Neurological: CN II-XII grossly intact, no focal motor or sensory deficits noted Skin: Intact with no visualized rashes Psych: Normal affect and mood Limitations: no limitations Course Vital Signs 02/20/23 02:52 Temperature 98.9 F Pulse Rate 104 H Respiratory 18 Rate Blood Pressure 145/91 O2 Sat by Pulse 98 Oximetry Medical Decision Making - Medical Decision Making Was pt. sent in by a medical professional or institution (, PA, INSULATION INSPECTOR, urgent care, hospital, or long term...) When possible be specific @ -No Did you speak to anyone other than the patient for history (EMS, parent, family, police, friend...)? What history was obtained from this source @ -No Did you review nursing and triage notes (agree or disagree)? Why? @ -I reviewed and agree with nursing and triage notes Were old charts reviewed (outside hosp., previous admission, EMS record, old EKG, old radiological studies, urgent care reports/EKG's, long term records)? Report findings @ -No old charts were reviewed Differential Diagnosis (chest pain, altered mental status, abdominal pain women, abdominal pain men, vaginal bleeding, musculoskeletal, weakness, fever, dyspnea, syncope, headache, dizziness, GI bleed, back pain, seizure, CVA, palpatations, mental health)? @ -Differential Mental Health: Depression, anxiety, bipolar, psychosis, schizophrenia, borderline personality, situational depression, adjustment disorder, behavioral disorder, brain tumor, malingering, substance abuse, encephalopathy, medication reaction, dementia, hypothyroidism, degenerative neurologic disorder, lupus.... This is not meant to be all-inclusive list EKG interpreted by me (3pts min.). @ -None done X-rays interpreted by me (1pt min.). @ -None done CT interpreted by me (1pt min.). @ -None done U/S interpreted by me (1pt. min.). @ -None done What testing was considered but not performed or refused? (CT, X-rays, U/S, labs)? Why? @ -None What meds were considered but not given or refused? Why? @ -None Did you discuss the management of the patient with other professionals (professionals i.e. Dr., PA, INSULATION INSPECTOR, lab, RT, psych nurse, social media coordinator, vice president sales and marketing, teacher, fire control officer, bottle caser)? Give summary @ -Psychiatric nurse who evaluated the patient and spoke with psychiatrist. They recommend discharge with outpatient management Was smoking cessation discussed for >3mins.? @ -No Was critical care preformed (if so, how long)? @ -No Were there social determinants of health that impacted care today? How? (Homelessness, low income, unemployed, alcoholism, drug addiction, transportation, low edu. Level, literacy, decrease access to med. care, long-term, rehab)? @ -No Was there de-escalation of care discussed even if they declined (Discuss DNR or withdrawal of care, Hospice)? DNR status @ -No What co-morbidities impacted this encounter? (DM, HTN, Smoking, COPD, CAD, Cancer, CVA, ARF, Chemo, Hep., AIDS, mental health diagnosis, sleep apnea, morbid obesity)? @ -None Was patient admitted / discharged? Hospital course, mention meds given and route, prescriptions, significant lab abnormalities, going to OR and other pertinent info. @ -22-year-old male presents to the ER for insomnia and not having his psychiatric medications for multiple weeks. Patient has no medical complaints. Evaluated by EPS who recommends discharge. Undiagnosed new problem with uncertain prognosis? @ -No Drug Therapy requiring intensive monitoring for toxicity (Heparin, Nitro, Insulin, Cardizem)? @ -No Were any procedures done? @ -No Diagnosis/symptom? Acute, or Chronic, or Acute on Chronic? Uncomplicated (without systemic symptoms) or Complicated (systemic symptoms)? @ -1. Depression Side effects of treatment? @ -No Exacerbation, Progression, or Severe Exacerbation? @ -No Poses a threat to life or bodily function? How? (Chest pain, [place], [place], pneumonia, PE, COPD, DKA, ARF, appy, cholecystitis, CVA, Diverticulitis, Homicidal, Suicidal, threat to staff... and all critical care pts) @ -No Disposition Clinical Impression: Depression Disposition: HOME SELF-CARE Condition: Good Is patient prescribed a controlled substance at d/c from ED?: No Referrals: None,Stated [Primary Care Provider] - 1-2 days Time of Disposition: 04:28
[2023-02-20] MEDS ORDERED: MELATONIN 3 MG TABLET PO STA (04:02)
== END 2023-02-20 04:34 | disposition home or self-care (01) ==
LOC: EC 02:48
DX: R45.851 Suicidal ideations (principal); F32.A Depression, unspecified; F90.9 Attention-deficit hyperactivity disorder, unspecified type; F17.200 Nicotine dependence, unspecified, uncomplicated; F12.90 Cannabis use, unspecified, uncomplicated
CPT/HCPCS: 82075; 99284

== ENCOUNTER 2023-02-20 18:48 | Emergency (ER) | payer OTHER ==
[2023-02-20 19:02] VITALS: BP 141/87; PULSE 88; RESP 18; TEMP 98
--- NOTE | 2023-02-20 20:59 | ED ---
General Adult HPI - General Chief complaint: Psychiatric Symptoms Stated complaint: mental health Time Seen by Provider: 02/20/23 19:03 Source: patient, RN notes reviewed Mode of arrival: ambulatory Limitations: no limitations - History of Present Illness Initial comments: 22-year-old male with no significant past medical history presents to the emergency department with a chief complaint of psychiatric evaluation. Patient was discharged here last night for the same. He was evaluated and discharged to [facility]. He reports that he was in the intake exam and they would not allow him to have his phone. He reports that he "was suicidal only because he wanted to have his phone and that is the only way that they will discharge you. "He denies any active suicidal ideation or plan at this time. He denies homicidal ideation. He denies any visual or auditory hallucinations. Denies any recent alcohol or illicit drug use. - Related Data Previous Rx's Medication Instructions Recorded ARIPiprazole IM [Abilify Maintena] 400 mg IM QMONTHLY #1 each 10/11/22 Benzocaine 20 % Gel [Orajel] 1 applic MM BID 30 Days each 10/11/22 Divalproex [Depakote] 1,000 mg PO HS 30 Days tab 10/11/22 Divalproex [Depakote] 500 mg PO DAILY 30 Days tab 10/11/22 Nicotine 14Mg/24Hr Patch [Habitrol] 1 patch TRANSDERM DAILY 30 Days 10/11/22 patch ARIPiprazole [Abilify] 20 mg PO HS #10 tablet 12/04/22 ARIPiprazole [Abilify] 20 mg PO HS 10 Days tab 12/04/22 LORazepam [Ativan] 1 mg PO TID 3 Days #9 tab 12/04/22 Melatonin 5 mg PO HS PRN #10 tablet 12/10/22 Allergies Allergy/AdvReac Type Severity Reaction Status Date / Time No Known Allergies Allergy Verified 02/20/23 02:51 Review of Systems ROS Statement: Those systems with pertinent positive or pertinent negative responses have been documented in the HPI. ROS Other: All systems not noted in ROS Statement are negative. Past Medical History Past Medical History: No Reported History Additional Past Medical History / Comment(s): Insomnia History of Any Multi-Drug Resistant Organisms: None Reported Past Surgical History: No Surgical Hx Reported Past Psychological History: ADD/ADHD, Bipolar, Schizoaffective Disorder, Schizophrenia Smoking Status: Current every day smoker Past Alcohol Use History: Rare Past Drug Use History: Marijuana - Past Family History Mother Family Medical History: Unable to Obtain (due to patient's psychosis) General Exam Limitations: no limitations General appearance: alert, in no apparent distress Head exam: Present: atraumatic, normocephalic, normal inspection Eye exam: Present: normal appearance, PERRL, EOMI. Absent: scleral icterus, conjunctival injection, periorbital swelling ENT exam: Present: normal exam, mucous membranes moist Neck exam: Present: normal inspection. Absent: tenderness, meningismus, lymphadenopathy Respiratory exam: Present: normal lung sounds bilaterally. Absent: respiratory distress, wheezes, rales, rhonchi, stridor Cardiovascular Exam: Present: regular rate, normal rhythm, normal heart sounds. Absent: systolic murmur, diastolic murmur, rubs, gallop, clicks GI/Abdominal exam: Present: soft, normal bowel sounds. Absent: distended, tenderness, guarding, rebound, rigid Extremities exam: Present: normal inspection, full ROM, normal capillary refill. Absent: tenderness, pedal edema, joint swelling, calf tenderness Back exam: Present: normal inspection Neurological exam: Present: alert, oriented X3, CN II-XII intact Psychiatric exam: Present: normal affect, normal mood Skin exam: Present: warm, dry, intact, normal color. Absent: rash Course Vital Signs 02/20/23 18:56 Temperature 98 F Pulse Rate 88 Respiratory 18 Rate Blood Pressure 141/87 O2 Sat by Pulse 97 Oximetry Medical Decision Making - Medical Decision Making Was pt. sent in by a medical professional or institution (, PA, VICE PRESIDENT RESEARCH, urgent care, hospital, or fci...) When possible be specific @ -[No] Did you speak to anyone other than the patient for history (EMS, parent, family, police, friend...)? What history was obtained from this source @ -[No] Did you review nursing and triage notes (agree or disagree)? Why? @ -[I reviewed and agree with nursing and triage notes] Were old charts reviewed (outside hosp., previous admission, EMS record, old EKG, old radiological studies, urgent care reports/EKG's, fci records)? Report findings @ -[No old charts were reviewed] Differential Diagnosis (chest pain, altered mental status, abdominal pain women, abdominal pain men, vaginal bleeding, weakness, fever, dyspnea, syncope, headache, dizziness, GI bleed, back pain, seizure, CVA, palpatations, mental health, musculoskeletal)? @ -[not applicable] EKG interpreted by me (3pts min.). @ -[As above] X-rays interpreted by me (1pt min.). @ -[None done] CT interpreted by me (1pt min.). @ -[None done] U/S interpreted by me (1pt. min.). @ -[None done] What testing was considered but not performed or refused? (CT, X-rays, U/S, labs)? Why? @ -[None] What meds were considered but not given or refused? Why? @ -[None] Did you discuss the management of the patient with other professionals (professionals i.e. , PA, VICE PRESIDENT RESEARCH, lab, RT, psych nurse, web content & social media manager, hand coper, teacher, gunnery/ordnance officer, case planner)? Give summary @ -[No] Was smoking cessation discussed for >3mins.? @ -[No] Was critical care preformed (if so, how long)? @ -[No] Were there social determinants of health that impacted care today? How? (Homelessness, low income, unemployed, alcoholism, drug addiction, transportation, low edu. Level, literacy, decrease access to med. care, intermediate, rehab)? @ -[No] Was there de-escalation of care discussed even if they declined (Discuss DNR or withdrawal of care, Hospice)? DNR status @ -[No] What co-morbidities impacted this encounter? (DM, HTN, Smoking, COPD, CAD, Cancer, CVA, ARF, Chemo, Hep., AIDS, mental health diagnosis, sleep apnea, morbid obesity)? @ -[None] Was patient admitted / discharged? Hospital course, mention meds given and r oute, prescriptions, significant lab abnormalities, going to OR and other pertinent info. @ -Discharged. This is a 22 year male who presents to the emergency department with psychiatric evaluation. Patient had a thorough history and physical exam performed physical exam is essentially unremarkable heart rate regular rate and rhythm, lungs clear to auscultation bilaterally abdomen is soft and non-tender. Patient was evaluated by EPS CLAUDIA Knott who believes the patient is stable enough for discharge. I discussed results in detail with the patient's mother who verbalized understanding and all questions were addressed. Return precautions were discussed at length. She was encouraged to follow up with her construction project engineer in 1-2 days. Case discussed with CARLEE Pugh who agrees with plan of care Undiagnosed new problem with uncertain prognosis? @ -[No] Drug Therapy requiring intensive monitoring for toxicity (Heparin, Nitro, Insulin, Cardizem)? @ -[No] Were any procedures done? @ -[No] Diagnosis/symptom? @ -psychiatric evaluation - suicidal ideation Acute, or Chronic, or Acute on Chronic? @ -acute Uncomplicated (without systemic symptoms) or Complicated (systemic symptoms)? @ -uncomplicated Side effects of treatment? @ -[No] Exacerbation, Progression, or Severe Exacerbation? @ -[No] Poses a threat to life or bodily function? How? (Chest pain, [place], [place], pneumonia, PE, COPD, DKA, ARF, appy, cholecystitis, CVA, Diverticulitis, Homicidal, Suicidal, threat to staff... and all critical care pts) @ -low likelihood Disposition Clinical Impression: Suicidal ideation Disposition: HOME SELF-CARE Condition: Stable Instructions (If sedation given, give patient instructions): Help Prevent Suicide (ED) Additional Instructions: Please return to the nearest emergency department if symptoms worsen or persist Is patient prescribed a controlled substance at d/c from ED?: No Referrals: None,Stated [Primary Care Provider] - 1-2 days Time of Disposition: 20:50
== END 2023-02-20 21:43 | disposition home or self-care (01) ==
LOC: EC 18:48
DX: R45.851 Suicidal ideations (principal); F31.9 Bipolar disorder, unspecified; F17.200 Nicotine dependence, unspecified, uncomplicated; F12.90 Cannabis use, unspecified, uncomplicated
CPT/HCPCS: 82075; 99284

== ENCOUNTER 2025-06-14 23:06 | Emergency (ER) | payer OTHER ==
[2025-06-14 23:09] VITALS: BP 180/115; PULSE 91; RESP 18; TEMP 98.5
--- NOTE | 2025-06-15 00:39 | ED ---
Psych HPI - General Chief Complaint: Psychiatric Symptoms Stated Complaint: mental health eval - suicidal Time Seen by Provider: 06/15/25 00:37 Source: patient, RN notes reviewed Mode of arrival: ambulatory - History of Present Illness Initial Comments: 24-year-old male presenting to the ER for suicidal ideation x 1 week. States he is suicidal because he cannot taste anything. Denies plan. Denies homicidal ideation. - Related Data Previous Rx's Medication Instructions Recorded ARIPiprazole IM [Abilify Maintena] 400 mg IM QMONTHLY #1 each 10/11/22 Benzocaine 20 % Gel [Orajel] 1 applic MM BID 30 Days each 10/11/22 Divalproex [Depakote] 1,000 mg PO HS 30 Days tab 10/11/22 Divalproex [Depakote] 500 mg PO DAILY 30 Days tab 10/11/22 Nicotine 14Mg/24Hr Patch [Habitrol] 1 patch TRANSDERM DAILY 30 Days 10/11/22 patch ARIPiprazole [Abilify] 20 mg PO HS #10 tablet 12/04/22 ARIPiprazole [Abilify] 20 mg PO HS 10 Days tab 12/04/22 LORazepam [Ativan] 1 mg PO TID 3 Days #9 tab 12/04/22 Melatonin 5 mg PO HS PRN #10 tablet 12/10/22 Allergies Allergy/AdvReac Type Severity Reaction Status Date / Time No Known Allergies Allergy Verified 06/14/25 23:09 Review of Systems ROS Statement: Those systems with pertinent positive or pertinent negative responses have been documented in the HPI. ROS Other: All systems not noted in ROS Statement are negative. Past Medical History Past Medical History: No Reported History Additional Past Medical History / Comment(s): Insomnia History of Any Multi-Drug Resistant Organisms: None Reported Past Surgical History: No Surgical Hx Reported Past Psychological History: ADD/ADHD, Bipolar, Schizoaffective Disorder, Schizophrenia Smoking Status: Current every day smoker Past Alcohol Use History: Rare Past Drug Use History: Marijuana - Past Family History Mother Family Medical History: Unable to Obtain (due to patient's psychosis) General Exam Limitations: no limitations General appearance: alert, in no apparent distress Head exam: Present: atraumatic, normocephalic, normal inspection Eye exam: Present: normal appearance, PERRL, EOMI. Absent: scleral icterus, conjunctival injection, periorbital swelling Neurological exam: Present: alert, oriented X3 Psychiatric exam: Present: normal affect, normal mood, suicidal ideation. Absent: homicidal ideation Skin exam: Present: warm, dry, intact, normal color. Absent: rash Course Vital Signs 06/14/25 23:08 Temperature 98.5 F Pulse Rate 91 Respiratory 18 Rate Blood Pressure 180/115 O2 Sat by Pulse 99 Oximetry Medical Decision Making - Medical Decision Making Was pt. sent in by a medical professional or institution (, PA, TOOL MECHANIC, urgent care, hospital, or penitentiary...) When possible be specific @ -No Did you speak to anyone other than the patient for history (EMS, parent, family, police, friend...)? What history was obtained from this source @ -No Did you review nursing and triage notes (agree or disagree)? Why? @ -I reviewed and agree with nursing and triage notes Were old charts reviewed (outside hosp., previous admission, EMS record, old EKG, old radiological studies, urgent care reports/EKG's, penitentiary records)? Report findings @ -No old charts were reviewed Differential Diagnosis (chest pain, altered mental status, abdominal pain women, abdominal pain men, vaginal bleeding, weakness, fever, dyspnea, syncope, headache, dizziness, GI bleed, back pain, seizure, CVA, palpatations, mental health, musculoskeletal)? @ -Differential Mental Health Depression, anxiety, bipolar, psychosis, schizophrenia, borderline personality, situational depression, adjustment disorder, behavioral disorder, brain tumor, malingering, substance abuse, encephalopathy, medication reaction, dementia, hypothyroidism, degenerative neurologic disorder, lupus.... This is not meant to be all-inclusive list EKG interpreted by me (3pts min.). @ -None X-rays interpreted by me (1pt min.). @ -None done CT interpreted by me (1pt min.). @ -None done U/S interpreted by me (1pt. min.). @ -None done What testing was considered but not performed or refused? (CT, X-rays, U/S, labs)? Why? @ -None What meds were considered but not given or refused? Why? @ -None Did you discuss the management of the patient with other professionals ( professionals i.e. , PA, TOOL MECHANIC, lab, RT, psych nurse, social work job titles, edi manager, teacher, mortgage loan officer originator, bilingual case manager)? Give summary @ -I spoke with Nato from EPS who determines patient does not meet inpatient criteria for psychiatric admission at this time Was smoking cessation discussed for >3mins.? @ -No Was critical care preformed (if so, how long)? @ -No Were there social determinants of health that impacted care today? How? (Homelessness, low income, unemployed, alcoholism, drug addiction, transportation, low edu. Level, literacy, decrease access to med. care, prison, rehab)? @ -No Was there de-escalation of care discussed even if they declined (Discuss DNR or withdrawal of care, Hospice)? DNR status @ -No What co-morbidities impacted this encounter? (DM, HTN, Smoking, COPD, CAD, Cancer, CVA, ARF, Chemo, Hep., AIDS, mental health diagnosis, sleep apnea, morbid obesity)? @ -None Was patient admitted / discharged? Hospital course, mention meds given and route, prescriptions, significant lab abnormalities, going to OR and other pertinent info. @ - discharge. 24-year-old male presenting for suicidal ideation x 1 week. Denies homicidal ideation. No medical complaints at this time. Patient is medically cleared to be seen by EPS. EPS did evaluate patient who determined he did not meet inpatient criteria for psychiatric admission at this time and can be safely planned and discharge. Case was discussed with my ED attending Dr. Renee Undiagnosed new problem with uncertain prognosis? @ -No Drug Therapy requiring intensive monitoring for toxicity (Heparin, Nitro, Insulin, Cardizem)? @ -No Were any procedures done? @ -No Diagnosis/symptom? @ -Suicidal ideation Acute, or Chronic, or Acute on Chronic? @ -Acute Uncomplicated (without systemic symptoms) or Complicated (systemic symptoms)? @ -uncomplicated Side effects of treatment? @ -No Exacerbation, Progression, or Severe Exacerbation? @ -No Poses a threat to life or bodily function? How? (Chest pain, [place], [place], pneumonia, PE, COPD, DKA, ARF, appy, cholecystitis, CVA, Diverticulitis, Homicidal, Suicidal, threat to staff... and all critical care pts) @ -unlikely Disposition Clinical Impression: Suicidal ideation Disposition: HOME SELF-CARE Additional Instructions: Please return to the Emergency Department if symptoms worsen or any other concerns. Is patient prescribed a controlled substance at d/c from ED?: No Referrals: None,Stated [Primary Care Provider] - 1-2 days Time of Disposition: 01:43
== END 2025-06-15 02:00 | disposition home or self-care (01) ==
LOC: EC 23:06
DX: R45.851 Suicidal ideations (principal); F17.200 Nicotine dependence, unspecified, uncomplicated
CPT/HCPCS: 82075; 99284